=== PATIENT | female | born 1990 | race Caucasian/White ===

== ENCOUNTER 2024-10-21 07:55 | Inpatient (IN) | payer MEDICAID, SELFPAY ==
--- OUTSIDE RECORDS SUMMARY | 2007-06-06 16:04 | XMS_ITS | Encounter Summary ---
Author Organization [facility] Address [address] [address] Phone Care Team Providers Care Personal Service Workers Name Role Phone Unavailable Primary Care Provider Unavailabl e Encounter Details Date Type Department Care Team (Late st Contact Info) Description 06/06/2007 4:04 [place] [address] Gumaro Breaux PA-C [address] [place] [address] Social History Tobacco Use Types Packs/Day Years Used Date Smoking Tobacco: Former Smokeless Tobacco: Never Comments:1./5 ppd Quit smoki ng summer Alcohol Use Standard Drinks/Week Comments Yes 0 (1 standard drink = 0.6 oz pur e alcohol) 1-2 drinks weekly Overall Financial Resource Strain (CARDIA) Answe r Date Recorded How hard is it for you to pa y for the very basics like food, housing, medical care, and heating? Somewhat hard 05/29/2019 PHQ-2 Answer Date Recorded PHQ-2 Total 3 05/29/2019 Hunger Vital Sign Answer Date Recorded Within the past 12 months, y ou worried that your food would run out before you got the money to buy more. Sometimes true Within the past 12 months, t he food you bought just didn't last and you didn't have money to get more. Sometimes true PRAPARE - Transportation Answer Date Re corded In the past 12 months, has l ack of transportation kept you from medical appointments or from getting medications? No 05/07 In the past 12 months, has l ack of transportation kept you from meetings, work, or from getting things needed for daily living? 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 No / Unsure 05/29/2019 4:00 PM CDT documented as of this encounter Plan of Treatment Not on file documented as of this encounter Visit Diagnoses Not on filedocumented in this encounter
--- OUTSIDE RECORDS SUMMARY | 2024-05-15 10:30 | XMS_ITS ---
Author Organization [facility] Address [address] [place] [address] Care Team Providers Care Character Actress Name Role Phone None, No PCP Primary Care Provider Joi Cavanaugh Unavailable [phone] Jeanette Lee Unavailable [phone] Allergies Allergen (clinical drug ingredient) Drug/Non Drug Allergy documented on EMR Reaction Allergy Type Onset Date Status Seasonal Allergies (uncoded) Unknown Allergy Active morphine Morphine Unknown Drug Allergy Active REASON FOR VISIT C/S 04/02, EPDS:, Pap: 2019?, control: Medications Medication SIG (Take, Route, Fr equency, Duration) Notes Start Date End Date Status Ibuprofen Active valACYclovir HCl 500 MG 1 tablet Orally Twice a day; Duration: 3 days 04/17/2024 Active Active Social History Tobacco Use: Social History Observation Description Date Details (start date - stop date) Never Smoker NA - NA Tobacco Control (Standard) Question Answer Notes Tobacco use: Nonsmoker Encounters Encounter Location Date Provider Diagnosis [facility] [address] [place] [phone] 05/15/2024 Jeanette Lee Encounter for routine follow-up Z39.2 and Encounter for screening for other disorder Z13.89 Assessments Encounter Date Diagnosis (ICD Code) Assessment Notes Treatment Notes Treatment Clinical Notes Section Notes 05/15/2024 Encounter for routine follow-up (ICD-10 - Z39.2) Patient was counseled on the importance of pelvic floor exercise in the post period for improved pelvic floor muscle tone and reduction of current or future urinary incontinence issues. Discussed scar massage to reduce scar tissue formation. Reviewed silicone scar sheets Pap Patient may resume normal activities. Discussed contraceptive options, desires Return for annual exam in 1 year and prn 05/15/2024 Encounter for screening for other disorder (ICD-10 - Z13.89) Plan Of Treatment Treatment Notes Assessment Notes Encounter for routine postpa rtum follow-up Patient was counseled on the importance of pelvic floor exercise in the post period for improved pelvic floor muscle tone and reduction of current or future urinary incontinence issues. Discussed scar massage to reduce scar tissue formation. Reviewed silicone scar sheets Pap Patient may resume normal activities. Discussed contraceptive options, desires Return for annual exam in 1 year and prn Next Appt Details Follow Up: 1 Year,prn, Reaso n: Progress Notes * Shena ALONSO NDOB:[birth year] (34 yo F)Acc No.[id number]:05/15/2024 Patient: Shena CEE Provider: Brandan Lee MD :1990 A ge:34 Y S ex:Female Date:05/15/2024 Address:[address] [place], [place] [id number] Pcp:No PCP None Subjective: * Chief Complaints: * 1 . C/S 04/02. 2. EPDS:. 3. Pap: 2019?. 4. control:. * HPI: * General: Pt is here for 6 weeks post visit. She had a repeat c/s on 04/02. was complicated by: 1st baby has skeletal dysplasia, Hx of kidney stones and hydronephrosis, hx of c/s, P reeclampsia with first, Herniated disk, Genital HSV, Hx fatty liver disease at age 24, Pre- BMI 35, Anxiety and hx of PP depression Also having some back pain and superficial left left pain- was happening during the pregnnacy, but has continued. Discussed gabapentin and PT- would like to see if improves She is currently breast and bottle feeding pumped milk Bleeding: She has/has not resumed intercourse. For control she desires: Her EPDS score was: . Leaking of urine with cough/sneeze: Need MMR or Varicella vaccine: no Completing 2hr GTT today: no Last pap smear: 2019- due today. * Medical History: M igraines, ADHD, Anxiety/Depression, Post- depression, Leukocytosis, Kidney Stones, Hydronephrosis. 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 B irth Control: N one. S exual Activity C urrently sexually active, male partner. S exually Tranmitted Disease (STD) H SV-Herpes Simplex Virus. D enies H/O Abnormal Pap Smear. D enies H/O Colposcopy. * OB History: G PAL: G 2P1 C/S x1. P regnancy # 1: 2 020, Primary , Female. P regnancy # 2: 2 025, Repeat . G P G ravida: 2, : 1, : 0, : 0, : 0, : 0, : 0, : 1. * Surgical History: T humb surgery , Tonsillectomy , C-Sectionx2 . * Hospitalization/Major Diagno stic Procedure: D elivery/ , Kidney stones , childbirth . * Family History: Pt Denies Family Medical Hx . * Social History: T obacco Use: T obacco Control (Standard) T obacco use: N onsmoker D rugs/Alcohol: D rugs H ave you used drugs other than those for medical reasons in the past 12 months? N o Caffeine I ntake: 1 -2 cups per day Do you smoke marijuana?: Denies. Do you drink alcohol?: Not while . M iscellaneous: E xercise: yes. * Medications: T aking Ibuprofen , Taking , Taking valACYclovir HCl 500 MG Tablet 1 tablet Orally Twice a day , Medication List reviewed and reconciled with the patient * Allergies: M orphine, Seasonal Allergies. Objective: * Vitals: * Examination: * General Examination: GENERAL APPEARANCE: i n no acute distress, alert, well hydrated, in no distress. BREASTS: D eferred. Patient is lactating. ABDOMEN: s oft, nontender, nondistended, Pfannenstiel incision healing well, no erythema, drainage, or induration. RECTAL: N o Hemorrhoids.. 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 PSYCH: a lert, oriented, judgement and insight good, mood/affect full range, speech clear. Assessment: * Assessment: 1. E ncounter for routine follow-up - Z39.2 (Primary) 2 . E ncounter for screening for other disorder - Z13.89 Plan: * Treatment: * Procedure Codes: 0 503F CARE VISIT, 00477 PT-FOCUSED HLTH RISK ASSMT, Modifiers: 59 , 67554 PT-FOCUSED HLTH RISK ASSMT, Modifiers: 59 * Preventive Medicine: YOUR PREVENTIVE WELLNESS PLAN: B reast Cancer Screening (Mammogram): My last mammogram was done on: U nder 39yrs C ervical Cancer Screening (Pap Smear): My last Pap smear was done on: 0 09/07/2019 NILM/-HPV O steoporosis Screening (Bone Density Measurement): My last bone density was done on: U nder 64yr C olorectal Cancer Screening: Last Done Colonoscopy U nder 44yrs D epression Screening: Screening for depression was last done on: 0 05/15/2024 * Follow Up: 1 Year,prn * Images: Billing Information: * Visit Code: * Procedure Codes: 0503F CARE VISIT. 69247 PT-FOCUSED HLTH RISK ASSMT. Modifiers: 59 14291 PT-FOCUSED HLTH RISK ASSMT. Modifiers: 59 * Electronic signature of Nicki Lee MD on 10/21/2024 at 09:06 AM CDT Sign off status: Pending * Provider: Brandan Lee MD Date: 0 05/15/2024 Generated for Vivian dumont/Vita/Luis Manuel on: 0 10/21/2024 09:06 AM CDT History and Physical Notes * HPI (History of Present Illness) Category Sub-Category Detail Notes Category Not es *General Pt is here for 6 weeks post visit. She had a repeat c/s on 04/02. was complicated by: 1st baby has skeletal dysplasia, Hx of kidney stones and hydronephrosis, hx of c/s, Preeclampsia with first, Herniated disk, Genital HSV, Hx fatty liver disease at age 24, Pre- BMI 35, Anxiety and hx of PP depression Also having some back pain and superficial left left pain- was happening during the pregnnacy, but has continued. Discussed gabapentin and PT- would like to see if improves She is currently breast and bottle feeding pumped milk Bleeding: She has/has not resumed intercourse. For control she desires: Her EPDS score was: . Leaking of urine with cough/sneeze: Need MMR or Varicella vaccine: no Completing 2hr GTT today: no Last pap smear: 2019- due today Examination Category Sub-Category Detail Notes Category Not es *General Examination GENERAL APPEARANCE: in no a cute distress, alert, well hydrated, in no distress ABDOMEN: soft, nontender, non distended, Pfannenstiel incision healing well, no erythema, drainage, or induration BREASTS: Deferred. Patient is lactating RECTAL: No Hemorrhoids. PSYCH: alert, oriented, alec gement and insight good, mood/affect full range, speech clear SUPPLY CHAIN VICE PRESIDENT: External genitals no rmal, labia without lesions or masses, vagina without abnormal discharge, lesions, rectocele, or cystocele Absent lochia, cervix palpates closed, negative CMT, uterus firm, mobile, non tender, normal uterine involution, adnexa without masses or tenderness, ovaries without enlargement, non tender.
--- OUTSIDE RECORDS SUMMARY | 2024-05-21 08:00 | XMS_ITS ---
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 Name Role Phone None, No PCP Primary Care Provider Joi Cavanaugh Unavailable [phone] Glendy Rucker Unavailable [phone] REASON FOR VISIT 6 WK DOD 04/02 Encounters Encounter Location Date Provider Diagnosis [facility] [id number] [place] [phone] 05/21/2024 Glendy Rucker Plan Of Treatment No Information Progress Notes * Shena ALONSO NDOB:[birth year] (34 yo F)Acc No.[id number]:05/21/2024 Patient: Shena CEE Provider: Myrna Rucker CNM :1990 A ge:34 Y S ex:Female Date:05/21/2024 Address:[address] [place], [place] [id number] Pcp:No PCP None Subjective: * Chief Complaints: * 1 . 6 WK DOD 04/02. * Medical History: Objective: * Vitals: Assessment: Plan: * Treatment: * Images: Billing Information: * Visit Code: * Procedure Codes: * Electronic signature of Glendy Rucker CNM on 10/21/2024 at 09:06 AM CDT Sign off status: Pending * Provider: Myrna Rucker CNM Date: 0 05/21/2024 Generated for Printi ng/Fapippag/eTransmitting on: 0 10/21/2024 09:06 AM CDT
--- OUTSIDE RECORDS SUMMARY | 2024-09-08 09:30 | XMS_ITS ---
Author Organization [facility] Address [address] [place] [address] Care Team Providers Care Diagnostic Cardiac Sonographer Name Role Phone None, No PCP Primary Care Provider Joi Cavanaugh Unavailable [phone] Glendy Rucker Unavailable [phone] Allergies Allergen (clinical drug ingredient) Drug/Non Drug Allergy documented on EMR Reaction Allergy Type Onset Date Status Seasonal Allergies (uncoded) Unknown Allergy Active morphine Morphine Unknown Drug Allergy Active REASON FOR VISIT BC Consult, What type of BC interested: getting facial hair ocp, LMP: 08/10/24, Pharmacy: [facility] [place], questions/concerns:, ZAYDA RMA, Possible thrush: white stuff on tongue, mouth wash, hydro mouthrinse. brush tongue. doesn't have a pcp, going on for 2 wks, bumpy and painful and also having a sore throat. feeling like hairs are sticking up on the tongue. Possible needing refill for valtrex Medications Medication SIG (Take, Route, Frequency, Duration) Notes Start Date End Date Status Daija 0.35 MG 1 tablet Orally Once a day; Duration: 90 days 09/08/2024 Active Active Ibuprofen Active Cephalexin 500 MG 1 capsule Orally juliet ry 6 hrs; Duration: 10 days 05/22/2024 Not-Takin g valACYclovir HCl 500 MG 1 tablet Orally Twice a day; Duration: 3 days 04/17/2024 Active Nystatin 833303 UNIT/ML 4 mL Mouth/Throa t Four times a day; Duration: 14 days 09/08/2024 Active Social History Tobacco Use: Social History Observation Description Date Details (start date - stop date) Never Smoker NA - NA Tobacco Control (Standard) Question Answer Notes Tobacco use: Nonsmoker Vital Signs Blood pressure systolic 120 mm Hg 09/09/19 25 Blood pressure diastolic 80 mm Hg 025 Height 65 in 09/08/2024 Weight 218.0 lbs 09/08/2024 BMI 36.27 kg/m2 09/08/2024 Encounters Encounter Location Date Provider Diagnosis [facility] [address] [place] [address] 09/08/2024 Glendy Rucker Counseling for initiation of control method Z30.09 and Thrush, oral B37.0 Assessments Encounter Date Diagnosis (ICD Code) Assessment Notes Treatment Notes Treatment Clinical Notes Section Notes 09/08/2024 Counseling for initiation of control method (ICD-10 - Z30.09) 09/08/2024 Thrush, oral (ICD-10 - B37.0) 09/08/2024 Other Discussed R/B/A for all available control options. No history of thrombus, HTN. Non smoker. At this time she opts for: progesterone only pill given status. Discussed when we would transition to combo pill. Discussed importance of med compliance for effectiveness. Nystsatin sent for oral thrush. Plan Of Treatment Medication Medication Name Sig Start Date Stop Date Notes Daija 0.35 MG 1 tablet Orally Once a day; Duration: 90 days 09/08/2024 Nystatin 661370 UNIT/ML 4 mL Mouth/Throa t Four times a day; Duration: 14 days 09/08/2024 Treatment Notes Assessment Notes Other Discussed R/B/A for all available control options. No history of thrombus, HTN. Non smoker. At this time she opts for: progesterone only pill given status. Discussed when we would transition to combo pill. Discussed importance of med compliance for effectiveness. Nystsatin sent for oral thrush. Next Appt Details Follow Up: 1 Year, Reason: Progress Notes * Shena ALONSO NDOB:[birth year] (34 yo F)Acc No.[id number]:09/08/2024 Patient: Shena CEE Safia Provider: Myrna Rucker CNM :1990 A ge:34 Y S ex:Female Date:09/08/2024 Address:[address] [place], [place] [address] [id number] Pcp:No PCP None Subjective: * Chief Complaints: * 1 . BC Consult. 2. What type of BC interested: getting facial hair ocp. 3. LMP: 08/10/24. 4. Pharmacy: [facility] [place]. 5. Questions/concerns:. 6. JL RMA. 7. Possible thrush: white stuff on tongue, mouth wash, hydro mouth rinse. brush tongue. doesn't have a pcp. 8. going on for 2 wks, bumpy and painful and also having a sore throat. feeling like hairs are sticking up on the tongue. Possible needing refill for valtrex. * HPI: * General: Shena is here today to discussion options for contraception. Most interested in a control pill. Past history of contraception: OCP Denies history of thrombus, HTN, liver disease, stroke, lupus. Non smoker. Medical history significant for: status Has painful breasts, heavy blood clots S/p repeat 04/02/24. exclusively. No supplementation. Oldest will be starting preschool. She thinks she may have thrush. * Medical History: M igraines, ADHD, Anxiety/Depression, Post- depression, Leukocytosis, Kidney Stones, Hydronephrosis. 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 * Medications: T aking Ibuprofen , Taking , Taking valACYclovir HCl 500 MG Tablet 1 tablet Orally Twice a day , Not-Taking Cephalexin 500 MG Capsule 1 capsule Orally every 6 hrs , Medication List reviewed and reconciled with the patient * Allergies: M orphine, Seasonal Allergies. Objective: * Vitals: H t: 65 in, Wt:218.0lbs, BP:120/80mm Hg, BMI:36.27Index. * Examination: * General Examination: GENERAL APPEARANCE: i n no acute distress, well developed, well nourished. O RAL CAVITY: m ucosa moist, bumps on tongue, white patches. T HROAT:?clear. P SYCH: a lert, oriented, judgement and insight good, mood/affect full range, speech clear. Assessment: * Assessment: 1. C ounseling for initiation of control method - Z30.09 (Primary) 2 .?Thrush, oral - B37.0 Plan: * Treatment: 2. O thers Notes: Discussed R/B/A for all available control options. No history of thrombus, HTN. Non smoker. At this time she opts for: progesterone only pill given status. Discussed when we would transition to combo pill. Discussed importance of med compliance for effectiveness. Nystsatin sent for oral thrush. * Preventive Medicine: YOUR PREVENTIVE WELLNESS PLAN: B reast Cancer Screening (Mammogram): M y last mammogram was done on: U nder 39yrs. C ervical Cancer Screening (Pap Smear): M y last Pap smear was done on: 0 09/07/2019 NILM/-HPV. O steoporosis Screening (Bone Density Measurement): M y last bone density was done on: U nder 64yr. C olorectal Cancer Screening: L ast Done Colonoscopy U nder 44yrs. D epression Screening: S creening for depression was last done on: 0 05/15/2024. * Follow Up: 1 Year * Images: Billing Information: * Visit Code: 83925 Office Visit, Est Pt., Level 3. * Procedure Codes: * Sign off status: Completed true * Provider: Myrna Rucker CNM Date: 0 09/08/2024 Generated for Vivian dumont/Vita/Luis Manuel on: 0 10/21/2024 09:07 AM CDT History and Physical Notes * HPI (History of Present Illness) Category Sub-Category Detail Notes Category Not es *General Shena is here today to discussion options for contraception. Most interested in a control pill. Past history of contraception: OCP Denies history of thrombus, HTN, liver disease, stroke, lupus. Non smoker. Medical history significant for: status Has painful breasts, heavy blood clots S/p repeat 04/02/24. exclusively. No supplementation. Oldest will be starting preschool. She thinks she may have thrush. Examination Category Sub-Category Detail Notes Category Not es *General Examination GENERAL APPEARANCE: in no a cute distress, well developed, well nourished THROAT: clear PSYCH: alert, oriented, alec gement and insight good, mood/affect full range, speech clear ORAL CAVITY: mucosa moist, bumps on tongue, white patches
[2024-10-21] VITALS (21 sets, daily range): BP systolic 109–136; BP diastolic 66–110; PULSE 94–145; RESP 14–20; TEMP 34.8–37; O2SAT 93–100; BMI 37.2
--- NOTE | 2024-10-21 08:47 | CRLHL7_ITS ---
For Patients: As a result of the Century Cures Act, medical imaging exams and procedure reports are released immediately into your electronic medical record. You may view this report before your referring provider. If you have questions, please contact your health care provider. Indication: Pelvic pain. Persistent bleeding. Technique: Transabdominal and transvaginal examination of the pelvis was performed. The patient terminated the study prematurely. Grayscale imaging was provided as well as spectral Doppler. Comparison: None Findings: As described below Impression: 1. The uterus is heterogeneous measuring 9.0 x 4.8 x 6.1 centimeters. 2. The endometrium measures approximately 1.1 centimeters. There is some extension of endometrial tissue into a scar. No unequivocal findings of retained products of conception though the study is limited 3. Apparent solid right adnexal mass incompletely evaluated on this study. 4. Free fluid in the cul de sac above that generally seen physiologically. 5. CT with intravenous contrast advised as this study is limited, abnormal, and shows nonspecific abnormalities Dictated by Iggy Lovell MD @ 10/21/2024 9:46:19 AM (Electronically Signed)
--- NOTE | 2024-10-21 08:55 | ED.ABDPAIN ---
HPI - Abdominal Pain General Date Seen: 10/21/24 Chief Complaint: Abdominal Pain Stated Complaint: Abdominal pain Time Seen by Provider: 10/21/24 08:11 Source: patient Mode of arrival: ambulatory Limitations: no limitations History of Present Illness HPI narrative: Patient is a 34-year-old female presenting to the emergency department for lower abdominal/pelvic pain. She states she woke up early this morning with the pain states it feels like a cramping sensation. Describes the pain as severe and it has prevented her from going back to bed. She states she has been feeling warm but is unsure if that is from feeling feverish or just due to the pain. Has not had any objective fevers. States she had somewhat similar pain several years ago but was not this severe and she was told it was IBS. States she feels like it is something more this time due to the severe increase in the pain. She states it makes her feel like she constantly has to go to the bathroom and has had multiple small bowel movements since then. Has also been having her. Continuously for 1 month which is abnormal for her. Did have a about 6-7 months ago at that time she states she was told they scraped off some of the endometrial tissue from ovary and the uterus. Has not had any vaginal discharge. States overall she healed well from the surgery. Denies chest pain, shortness of breath, lightheadedness, dizziness, weakness, numbness, vision changes, headache. Has been having some nausea but denies any vomiting. Related Data Home Medications ?Medication ?Instructions ?Recorded ?Confirmed No Known Home Medications 10/21/24 10/21/24 Allergies Allergy/AdvReac Type Severity Reaction Status Date / Time No Known Drug Allergies Allergy Verified 10/21/24 08:08 Review of Systems Status of ROS Reports: 10 or more systems reviewed and unremarkable except as noted in History and below [facility] PFS Social History Non-prescribed substance use: denies use Exam Narrative: Exam Narrative: Const: Well-nourished, Well-developed, in moderate distress Eyes: PERRL, no conjunctival injection, and symmetrical lids HENT: Atraumatic external nose and ears. Moist mucous membranes. Neck: Symmetric, trachea midline, No thyromegaly. CVS: RRR, No murmurs or gallops. Peripheral pulses 2+ and equal in all extremities RESP: Unlabored respiratory effort. Clear to auscultation bilaterally. GI: Lower abdominal tenderness, Nondistended, No rebound or guarding. Pelvic: Bilateral pelvic tenderness. MSK:Extremities w/o deformity, Normal Active ROM Skin: Warm, Dry. No rashes or lesions. Neuro: Normal Muscle tone, No focal neurological deficits. Psych: Awake, Alert, & Oriented x3. Appropriate mood and affect. Const: Vital Signs, click to edit/add: Vital Signs - 24 hr 10/21/24 08:00 10/21/24 09:30 Temperature 97.4 F L Pulse Rate [Right Pulse Oximeter] 145 H 115 H Respiratory Rate 18 18 Blood Pressure [Ri ght Upper Arm] 128/92 H Pulse Oximetry 97 Oxygen Delivery Me thod Room Air Course Vital Signs Vital signs: Initial Vital Signs Temperature 97.4 F L 10/21/24 08:00 Temperature Source Temporal Artery Scan 10/21/24 08:00 Pulse Rate 145 H 10/21/24 08:00 Pulse Rhythm Regular 10/21/24 08:00 Pulse Strength 3+ Normal 10/21/24 08:00 Respiratory Rate 18 10/21/24 08:00 Blood Pressure 128/92 H 10/21/24 08:00 Blood Pressure Mean 104 10/21/24 08:00 Blood Pressure Position Sitting 10/21/24 08:00 Pulse Oximetry 97 10/21/24 08:00 Oxygen Delivery Method Room Air 10/21/24 08:00 Vital Signs Temperature 97.4 F L 10/21/24 08:00 Pulse Rate 145 H 10/21/24 08:00 Respiratory Rate 18 10/21/24 08:00 Blood Pressure 128/92 H 10/21/24 08:00 Pulse Oximetry 97 10/21/24 08:00 Oxygen Delivery Method Room Air 10/21/24 08:00 Temperature 97.4 F L 10/21/24 08:00 Pulse Rate 115 H 10/21/24 09:30 Respiratory Rate 18 10/21/24 09:30 Blood Pressure 128/92 H 10/21/24 08:00 Pulse Oximetry 97 10/21/24 08:00 Oxygen Delivery Method Room Air 10/21/24 08:00 Medications Administered Medications: Discontinued Medications Generic Name Dose Route Start Last Admin Trade Name Freq PRN Reason Stop Dose Admin Hydromorphone HCl 1 mg 10/21/24 10:18 10/21/24 10:37 Hydromorphone 0.5 Mg/0.5 Ml Inj IVP 10/21/24 10:19 1 mg ONCE ONE Administration Morphine Sulfate 4 mg 10/21/24 08:47 10/21/24 09:09 Morphine 4 Mg/Ml Inj IVP 10/21/24 08:48 4 mg ONCE ONE Administration Morphine Sulfate 4 mg 10/21/24 09:32 10/21/24 09:35 Morphine 4 Mg/Ml Inj IVP 10/21/24 09:33 4 mg ONCE ONE Administration Ondansetron HCl 4 mg 10/21/24 08:47 10/21/24 09:09 Ondansetron 2 Mg/Ml Inj IVP 10/21/24 08:48 4 mg ONCE ONE Administration Ondansetron HCl 4 mg 10/21/24 10:43 10/21/24 11:14 Ondansetron 2 Mg/Ml Inj IVP 10/21/24 10:44 4 mg ONCE ONE Administration MDM - Abdominal Pain MDM Narrative Medical decision making narrative: Patient is a 34-year-old female presenting to the emergency department for lower abdominal/pelvic pain. Differential at this time includes ovarian torsion, endometriosis, retained products of conception, endometriosis, diverticulitis, UTI, appendicitis. She has had multiple small bowel movements in SBO seems less likely. Due to location of pain pancreatitis and gallbladder/liver disease seem unlikely. Will give her morphine for pain and Zofran for nausea. Pelvic ultrasound will be ordered 1st as considering the vaginal bleeding and previous I do believe a ultrasound is more emergent. If this is negative will go on to doing a CT scan. Also ordered urinalysis, CBC, CMP, lactate. Patient lab work returned showing that she has a white count of 15.29. She does states she has a chronic leukocytosis. Her lactate is within normal limits. CMP shows no concerning abnormalities. She is very mildly elevated AST and ALT. Morphine is given for pain and she went for ultrasound. Is difficult to get an adequate ultrasound due to patient's pain. Results returned showing a adnexal mass of unknown size and greater than expected pelvic fluid. I spoke to the patient and she states she has not had sex for several months. test was ordered and came back positive. At this time I am concerned for an ectopic . I spoke to the on-call Ob who recommends trying repeat the ultrasound for better evaluation in wait for the hCG quantitative to come back. Patient is given more morphine and some dilaudid After the medications another ultrasound was done. This was also difficult to do because of the patient's pain limiting exam. Based on but was able to be viewed in the patient having an hCG quantitative of 3120 is determined to be an ectopic . I spoke to Dr. Candelaria again who came immediately to evaluate the patient for surgery. Patient last ate around 03:00 when she had a pop tart. Her tachycardia has improved from 145 to 115. Lab Data Labs: Lab Results 10/21/24 10/21/24 10/21/24 Range/Units 09:05 10:09 10:20 WBC 15.29 H (4.50-11.00) K/uL RBC 4.51 (4.00-5.20) m/uL Hgb 12.6 (12.0-16.0) gm/dL Hct 38.2 (33.0-51.0) % MCV 85 (80-100) fL MCH 28 (26-34) pg MCHC 33 (32-36) gm/dL RDW Coeff of Meri 13.3 (11.5-15.5) % Plt Count 317 (140-440) K/uL Neut % (Auto) 77.3 H (42.0-72.0) % Lymph % (Auto) 18.1 L (20-44) % [place] % (Auto) 3.9 (0.0-11.0) % Eos % (Auto) 0.3 (0.0-7.0) % Baso % (Auto) 0.1 (0.0-3.0) % Neut # (Auto) 11.80 H (1.7-7.0) K/uL Lymph # (Auto) 2.80 (0.90-2.90) K/uL [place] # (Auto) 0.60 (0.00-0.90) K/UL Eos # (Auto) 0.00 (0.00-0.50) K/uL Baso # (Auto) 0.00 (0.00-0.30) K/uL Abs Immat Gran (auto) 0.00 (0.00-0.30) K/uL Imm/Tot Granulo (auto) 0.3 % Sodium 135 (135-149) mmol/L Potassium 4.4 (3.6-5.1) mmol/L Chloride 109 (96-114) mmol/L Carbon Dioxide 19 L (20-32) mmol/L Anion Gap 7 (7-15) mEq/L BUN 19 (5-24) mg/dL Creatinine 0.6 (0.5-1.5) mg/dL Estimated Creat Clear 113.01 Estimated GFR 120 ml/min Glucose 125 H (60-115) mg/dL Lactate 1.5 (0.5-1.9) mmol/L Calcium 8.9 (8.4-10.6) mg/dL Total Bilirubin 0.4 (0.1-1.5) mg/dL AST 42 H (12-35) U/L ALT 45 H (4-35) U/L Alkaline Phosphatase 75 (40-150) U/L Total Protein 6.9 (6.0-8.3) g/dL Albumin 4.0 (3.3-5.0) g/dL HCG, Qual Positive (Negative) HCG, Quant 3120.10 mIU/mL Lab Acknowledgement Test Added Blood Type A Positive Antibody Screen NEGATIVE Imaging Data Initial transvaginal ultrasound: Attestation: I have reviewed the pertinent imaging results. Radiologist's impression: 1. The uterus is heterogeneous measuring 9.0 x 4.8 x 6.1 centimeters. 2. The endometrium measures approximately 1.1 centimeters. There is some extension of endometrial tissue into a scar. No unequivocal findings of retained products of conception though the study is limited 3. Apparent solid right adnexal mass incompletely evaluated on this study. 4. Free fluid in the cul de sac above that generally seen physiologically. 5. CT with intravenous contrast advised as this study is limited, abnormal, and shows nonspecific abnormalities Dictated by Iggy Lovell MD @ 10/21/2024 9:46:19 AM Critical Care Time Critical Care Time Critical Care Time: Yes Attestation: The patient required my highest level preparedness to intervene emergently and I personally spent this critical care time directly and personally managing the patient. This critical care time included: Obtaining a history; Examining the patient; Pulse oximetry; Ordering and reviewing of studies; Arranging urgent treatment with development of a management plan; Evaluation of patients response to treatment; Frequent reassessment discussions with other providers. This critical care time was performed to assess and manage the high probability of imminent life-threatening deterioration that could result in multiorgan failure. It was exclusive of separate billable procedures and treating other patients and teaching time. Total Critical Care Time in Minutes: 35 Discharge Plan Discharge Clinical Impression: Ectopic of right ovary Patient Disposition: XFER to OR Condition: Guarded Follow Up/Referrals: Provider,Not a Local [Primary Care Provider, Family Practice]
--- OUTSIDE RECORDS SUMMARY | 2024-10-21 09:07 | XMS_ITS | Patient Health Record ---
Author Organization [facility] Address [address] [place] [address] Care Team Providers Care Dietist Name Role Phone None, No PCP Primary Care Provider UnavailJoi Moise Unavailable [phone] Daija Lima Unavailable [phone] Isabela Guerrero Unavailable [phone] Spring Avitia Unavailable [phone] Kaylie Chairez Unavailable [phone] Sun Peace Unavailable [phone] Glendy Rucker Unavailable [phone] Mary Salazar Unavailable Mirr, Jeanette Unavailable [phone] Heritage, Jaylen Unavailable [phone] Allergies Allergen (clinical drug ingredient) Drug/Non Drug Allergy documented on EMR Reaction Allergy Type Onset Date Status Seasonal Allergies (uncoded) Unknown Allergy Active morphine Morphine Unknown Drug Allergy Active Results Component Value Reference Range Notes TSH Reviewed date:05/23/2024 08:38:24 AM Interpretation: Performing Lab:[facility], [facility] [address], HydrostorNumhZU[address] Delbert Vazquez Notes/Report: TSH 1.06 Reference Range > or = 20 Years 0.40-4.50 Ranges First trimester 0.26-2.66 Second trimester 0.55-2.73 Third trimester 0.43-2.91 T4, FREE Reviewed date:05/23/2024 08:38:15 AM Interpretation: Performing Lab:[facility], [facility] [address], [place]storDksoHL[address] Delbert Vazquez Notes/Report: T4, FREE 1.0 0.8-1.8 ng/dL Urinalysis, Routine (IH) Reviewed date:01/16/2024 02:46:56 PM Interpretation: Performing Lab: Notes/Report: Customer Advisor: 01 Lab UA Machine ([id number]), [facility] RPR (DX) W/REFL TITER AND CO NFIRMATORY TESTING Reviewed date:01/22/2024 08:08:01 AM Interpretation: Performing Lab:DASHAWN, [email or web address], AmlogicAidbUS[address] Delbert Vazquez Notes/Report: 0; 0; 0 RPR (DX) W/REFL TITER AND CONFIRMATORY TESTING NON-REACTIVE NON-REACTIVE is suspected, submit a new sample in 2-4 weeks. No laboratory evidence of syphilis. If recent exposure CBC (INCLUDES DIFF/PLT) Reviewed date:01/17/2024 02:22:24 PM Interpretation: Performing Lab:[email or web address], AmlogicSaqzKS[address] Delbert Vazquez Notes/Report: 0; 0; 0 WHITE BLOOD CELL COUNT 15.7 3.8-10.8 Thousand/ uL RED BLOOD CELL COUNT 4.59 3.80-5.10 Million/uL HEMOGLOBIN 13.8 11.7-15.5 g/dL HEMATOCRIT 41.7 35.0-45.0 % MCV 90.8 80.0-100.0 fL MCH 30.1 27.0-33.0 pg MCHC 33.1 32.0-36.0 g/dL For adults, a slight decrease in the calculated MCHC value (in the range of 30 to 32 g/dL) is most likely not clinically significant; however, it should be interpreted with caution in correlation with other red cell parameters and the patient's clinical condition. RDW 13.0 11.0-15.0 % PLATELET COUNT 282 140-400 Thousand/uL MPV 9.6 7.5-12.5 fL ABSOLUTE NEUTROPHILS 36892 1790-9641 cells/uL ABSOLUTE LYMPHOCYTES 3485 850-3900 cells/uL ABSOLUTE MONOCYTES 597 200-950 cells/uL ABSOLUTE EOSINOPHILS 79 15-500 cells/uL ABSOLUTE BASOPHILS 47 0-200 cells/uL NEUTROPHILS 73.2 LYMPHOCYTES 22.2 MONOCYTES 3.8 EOSINOPHILS 0.5 BASOPHILS 0.3 GLUCOSE, GESTATIONAL SCREEN (50G)-135 CUTOFF Reviewed date:01/17/2024 02:22:24 PM Interpretation: Performing Lab:D[facility]HAWN [email or web address] [address], [facility] CenterUecpFP[address] Delbert Vazquez Notes/Report: 0; 0; 0 GLUCOSE, GESTATIONAL SCREEN (50G)-135 CUTOFF 120 <135 mg/dL MVP (Multiplex Vaginitis) (I H) Reviewed date:03/27/2024 08:44:54 AM Interpretation: Performing Lab: Notes/Report: Customer Advisor: tati Lot: [id number], Expiry: 2024-12 CT/NG Cepehid ([id number]), [place] - Lab Chlamydia & Gonorrhea Reviewed date:03/31/2024 11:24:25 AM Interpretation: Performing Lab:Ana FIERRO [facility], QqxrvfvinmNV[address] Delbert Vazquez Notes/Report: 0 CHLAMYDIA TRACHOMATIS RNA, TMA, UROGENITAL NOT DETECTED NOT DETECTED NEISSERIA GONORRHOEAE RNA, TMA, UROGENITAL NOT DETECTED NOT DETECTED COMMENT The analytical performance characteristics of this assay, when used to test SurePath(TM) specimens have been determined by [email or web address]. The modifications have not been cleared or approved by the FDA. This assay has been validated pursuant to the CLIA regulations and is used for clinical purposes. For additional information, please refer to https://education.[employer]/faq/HXR072 (This link is being provided for information/ educational purposes only.) STREPTOCOCCUS, GROUP B CULTU RE Reviewed date:03/18/2024 03:22:30 PM Interpretation:Negative Performing Lab:DASHAWN [email or web address] [address], [place] QilfJM[address] Delbert Vazquez Notes/Report: 0 STREPTOCOCCUS, GROUP B CULTURE SEE NOTE STREPTOCOCCUS, GROUP B CULTURE Micro Number: [id number] Test Status: Final Specimen Source: Vaginal/anorectal Specimen Quality: Adequate Result: No group B Streptococcus isolated Note per CDC guidelines optimal recovery is achieved by swabbing both the lower vagina and rectum (through the anal sphincter). Reason For Referral Reason MFM Diagnosis 1 Encounter for superv ision of other normal in second trimester (Z34.82) [facility]erral Organization [facility] Referring Provider First Name Sun Referring Provider Last Name Nata Referring Provider Speciality Certified Nurse Etl Developer Referred Provider Specialty -Per inatal Medicine Clinical Notes Colton Patel 02:02:45 PM > Referral sent to [facility], Colton Patel 11/14/2023 03:38:57 PM > Pt seen at [facility] 10.8.24. reports and office visit note in pt docs. Pt is scheduled for f/u [facility] visit 12/13/23, Colton Patel 12/14/2023 11:12:07 AM > Report scanned into pt chart CW CTC Referral Priority Routine Referral Appointment Date 12/13/2023 Medications Medication SIG (Take, Route, Frequency, Duration) Notes Start Date End Date Status Daija 0.35 MG 1 tablet Orally Once a day; Duration: 90 days 09/08/2024 Active Nystatin 281660 UNIT/ML 4 mL Mouth/Throa t Four times a day; Duration: 14 days 09/08/2024 Active Active Ibuprofen Active Cephalexin 500 MG 1 capsule Orally juliet ry 6 hrs; Duration: 10 days 05/22/2024 Not-Takin g valACYclovir HCl 500 MG 1 tablet Orally Twice a day; Duration: 3 days 04/17/2024 Active Immunizations Vaccine Route Administration Date Status Comme nts TDAP VACCINE >7 IM IM Intramuscular 01/15/2024 Administere d Social History Tobacco Use: Social History Observation Description Date Details (start date - stop date) Never Smoker NA - NA Tobacco Control (Standard) Question Answer Notes Tobacco use: Nonsmoker AUDIT-C (Standard) Question Answer Notes Did you have a drink contain ing alcohol in the past year? Yes How often did you have six o r more drinks on one occasion in the past year? Less than monthly (1 point) How many drinks did you have on a typical day when you were drinking in the past year? 3 or 4 drinks (1 point) How often did you have a dri nk containing alcohol in the past year? Monthly or less (1 point) Points 3 Interpretation Positive Problems Problem Type SNOMED Code ICD Code Onset Dates Problem Status W/U Status Risk Notes Problem Neck pain (81675000) Neck pain (M54.2) Active confirmed Problem Maternal obesity complicating , childbirth and the puerperium, antepartum (558766070790) Obesity in (O99.210) Active confirmed Vital Signs Blood pressure diastolic 80 mm Hg 09/08/2024 Height 65 in 09/08/2024 Blood pressure systolic 120 mm Hg 09/08/2024 Weight 218.0 lbs 09/08/2024 BMI 36.27 kg/m2 09/08/2024 Encounters Encounter Location Date Provider Diagnosis [address] [id number] 01/31/2024 Jeanette Lee Supervision of other high risk pregnancies, third trimester O09.893 ; Fundal height high for dates Z34.90 and 30 weeks gestation of Z3A.[address] [id number] 05/22/2024 Mary Holly Encounter for routine follow-up Z39.2 [facility] [address] [place] [address] 03/14/2024 Daija Lima screening for streptococcus B Z36.[address] [id number] 01/31/2024 Jeanette Lee Neuralgia M79.2 ; Encounter for supervision of other normal , third trimester Z34.83 ; History of herpes genitalis Z86.19 ; History of section Z98.891 ; with history of section, antepartum O34.219 and Hx of preeclampsia, prior , currently O09.[address] [id number] 01/15/2024 Spring Avitia Encounter for supervision of other normal , third trimester Z34.83 [facility] [address] [place] [address] 11/29/2023 Sun Peace Encounter for supervision of other normal , second trimester Z34.82 [facility] [address] [place] [address] 11/02/2023 Sun Peace Encounter for supervision of normal first , second trimester Z34.02 [facility] [address] [place] [address] 03/26/2024 Jaylen Hesterlashanda Hx of preeclampsia, prior , currently O09.299 ; Supervision of other high risk pregnancies, third trimester O09.893 ; with history of section, antepartum O34.219 ; Obesity in O99.210 ; 38 weeks gestation of Z3A.38 ; Other mental disorders complicating , third trimester O99.343 ; Vaginitis N76.0 ; Acute vaginitis N76.0 ; Encounter for screening examination for sexually transmitted disease Z11.3 ; Screen for STD (sexually transmitted disease) Z11.3 and Encounter for screening examination for chlamydial infection Z11.[address] [id number] 03/18/2024 Kaylie Chairez Obesity in O99.210 and Supervision of high risk , unspecified, third trimester O09.[address] [id number] 03/13/2024 Daija Lima Supervision of high risk , unspecified, third trimester O09.93 ; History of herpes genitalis Z86.19 ; with history of section, antepartum O34.219 ; Hx of preeclampsia, prior , currently O09.299 and Obesity in O99.[address] [id number] 02/28/2024 Jeanette Lee Supervision of high risk , unspecified, third trimester O09.93 ; History of herpes genitalis Z86.19 ; with history of section, antepartum O34.219 ; Hx of preeclampsia, prior , currently O09.299 and Obesity in O99.210 [facility] [address] [place] [address] 05/22/2024 Mary Holly exam Z39.2 and Mastitis N61.[address] [address] 09/08/2024 Glendy Rucker Counseling for initiation of control method Z30.09 and Thrush, oral B37.[address] [place] [address] [id number] 03/18/2024 Daija Lima High risk , antepartum O09.90 and 37 weeks gestation of Z3A.[address] [id number] 03/26/2024 Jaylen Pena [address] [id number] 03/25/2024 Isabela Guerrero Segmental and somati c dysfunction of cervical region M99.01 ; Neck pain M54.2 ; Thoracic region somatic dysfunction M99.02 ; Pain in thoracic spine M54.6 ; Segmental and somatic dysfunction of lumbar region M99.03 ; Lumbar spine pain M54.50 and Myofascial pain M79.[address] [id number] 02/28/2024 Jeanette Lee Supervision of other high risk pregnancies, third trimester O09.893 and 34 weeks gestation of Z3A.[address] [id number] 03/26/2024 Kaylie Chairez Encounter for supervision of high risk in third trimester, antepartum O09.93 and 38 weeks gestation of Z3A.38 [facility] [address] [facility] [place] [address] 01/15/2024 Spring Avitia Encounter for supervision of normal in multigravida in third trimester Z34.[address] [id number] 03/18/2024 Isabela Guerrero Segmental and somati c dysfunction of cervical region M99.01 ; Neck pain M54.2 ; Thoracic region somatic dysfunction M99.02 ; Pain in thoracic spine M54.6 ; Segmental and somatic dysfunction of lumbar region M99.03 ; Lumbar spine pain M54.50 and Myofascial pain M79.18 [facility] [address] [place] [address] 02/13/2024 Glendy Rucker History of herpes genitalis Z86.19 ; Supervision of other high risk pregnancies, third trimester O09.893 ; with history of section, antepartum O34.219 ; Hx of preeclampsia, prior , currently O09.299 and 32 weeks gestation of Z3A.32 [facility] [address] [facility] [address] [place] [id number] 04/17/2024 Jeanette Lee Status post delivery Z98.891 ; History of herpes genitalis Z86.19 and Excessive flow of breast milk N64.3 [facility] [address] [place] [address] 04/02/2024 Jeanette Lee Maternal care for lo w transverse scar from previous delivery O34.211 ; 39 weeks gestation of Z3A.39 and Single live Z37.0 [facility] [address] [place] [address] 03/10/2024 Isabela Guerrero [facility] [address] [place] [address] 03/04/2024 Joi Benavides [facility] [address] [place] [address] [place] [id number] 02/29/2024 Jeanette Lee [facility] [address] [place] [address] [place] [id number] 01/14/2024 Spring Avitia [facility] [address] [address] [address] 12/13/2023 Sun Peace [facility] [address] [place] [address] 11/29/2023 Sun Peace [facility] [address] [place] [address] 11/12/2023 Sun Peace [facility] [address] [place] [address] [place] [id number] 11/02/2023 Sun Peace [facility] [address] [place] [address] 10/12/2024 Glendy Rucker [facility] [address] [place] [address] 05/22/2024 Mary Holly [facility] [address] [place] [id number] 04/30/2024 Sun Peace [facility] [address] [place] [address] 04/21/2024 Sun Peace [facility] [address] [facility] [address] [place] [id number] 03/27/2024 Jaylen lashanda [facility] [address] [place] [address] 03/27/2024 Sun Peace [facility] [address] [facility] [address] [place] [id number] 03/26/2024 Jaylen [facility] [address] [place] [address] 03/17/2024 Sun Peace Assessments Encounter Date Diagnosis (ICD Code) Assessment Notes Treatment Notes Treatment Clinical Notes Section Notes 11/02/2023 Encounter for supervision of normal first , second trimester (ICD-10 - Z34.02) 11/29/2023 Encounter for supervision of other normal , second trimester (ICD-10 - Z34.82) 01/15/2024 Encounter for supervision of normal in multigravida in third trimester (ICD-10 - Z34.83) 01/15/2024 Encounter for supervision of other normal , third trimester (ICD-10 - Z34.83) 01/31/2024 Supervision of other high risk pregnancies, third trimester (ICD-10 - O09.893) 01/31/2024 Fundal height high for dates (ICD-10 - Z34.90) 01/31/2024 Encounter for supervision of other normal , third trimester (ICD-10 - Z34.83) 01/31/2024 Neuralgia (ICD-10 - M79.2) 02/13/2024 Supervision of other high risk pregnancies, third trimester (ICD-10 - O09.893) 02/28/2024 Supervision of other high risk pregnancies, third trimester (ICD-10 - O09.893) 02/28/2024 34 weeks gestation of (ICD-10 - Z3A.34) 02/28/2024 Supervision of high risk , unspecified, third trimester (ICD-10 - O09.93) 02/13/2024 History of herpes genitalis (ICD-10 - Z86.19) 02/28/2024 History of herpes genitalis (ICD-10 - Z86.19) 03/13/2024 Supervision of high risk , unspecified, third trimester (ICD-10 - O09.93) 03/13/2024 History of herpes genitalis (ICD-10 - Z86.19) 03/14/2024 screening for streptococcus B (ICD-10 - Z36.85) 03/18/2024 37 weeks gestation of (ICD-10 - Z3A.37) 03/18/2024 High risk , antepartum (ICD-10 - O09.90) 03/18/2024 Supervision of high risk , unspecified, third trimester (ICD-10 - O09.93) 03/18/2024 Obesity in (ICD-10 - O99.210) 03/18/2024 Segmental and somatic dysfunction of cervical region (ICD-10 - M99.01) DIAGNOSIS: Upon consideration of the information available I have diagnosed Shena with the above diagnoses. The patient is currently in acute phase. Short Term Goals- decrease segmental dysfunction, decrease swelling and inflammation, decrease pain, relief care, relief of symptoms and pain management - Short Term Goals: slight improvement by next exam Mcc Goals- decrease segmental dysfunction, decrease swelling and inflammation, increase active and passive range of motion, strengthening, decrease muscle spasms, decrease pain, relief care, relief of symptoms, pain management, maximum medical improvement, increase proprioception, and decrease nociception senior care goals: significantly improved by discharge The patient's prognosis of current condition is Fair. 03/18/2024 Neck pain (ICD-10 - M54.2) DIAGNOSIS: Upon consideration of the information available I have diagnosed Shena with the above diagnoses. The patient is currently in acute phase. 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 03/25/2024 Segmental and somatic dysfunction of cervical region (ICD-10 - M99.01) DIAGNOSIS: Upon consideration of the information available I have diagnosed Shena with the above diagnoses. The patient is currently in acute phase. 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 03/26/2024 38 weeks gestation of (ICD-10 - Z3A.38) 03/26/2024 Encounter for supervision of high risk in third trimester, antepartum (ICD-10 - O09.93) 03/26/2024 Supervision of other high risk pregnancies, third trimester (ICD-10 - O09.893) 03/26/2024 Hx of preeclampsia, prior , currently (ICD-10 - O09.299) 04/02/2024 Maternal care for low transverse scar from previous delivery (ICD-10 - O34.211) 04/17/2024 History of herpes genitalis (ICD-10 - Z86.19) rx for valtrex sent for possible recurrent outbreak 04/17/2024 Status post delivery (ICD-10 - Z98.891) Doing well Pain well controlled Incision healing well without concern Lochia decreasing Lateral femoral cutaneous nerve irritation- planning to monitor at this time, reviewed option for PT or gabapentin if needed in future RTC in 4 weeks for full visit 05/22/2024 exam (ICD-10 - Z39.2) 05/22/2024 Mastitis (ICD-10 - N61.0) 05/22/2024 Encounter for routine follow-up (ICD-10 - Z39.2) 09/08/2024 Counseling for initiation of control method (ICD-10 - Z30.09) 09/08/2024 Thrush, oral (ICD-10 - B37.0) 04/02/2024 39 weeks gestation of (ICD-10 - Z3A.39) 04/02/2024 Single live (ICD-10 - Z37.0) 04/17/2024 Excessive flow of breast milk (ICD-10 - N64.3) Having oversupply and fast letdown Producing 100+ mL/day Discussed block feeding, cool compresses/cabba ge leaves for engorgement If needs to pump/empty for comfort- limit amount of time Recommend collecting milk with passive collection instead of stimulating more supply with Haakaa 03/26/2024 with history of section, antepartum (ICD-10 - O34.219) 03/25/2024 Neck pain (ICD-10 - M54.2) DIAGNOSIS: Upon consideration of the information available I have diagnosed Shena with the above diagnoses. The patient is currently in acute phase. 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 03/18/2024 Thoracic region somatic dysfunction (ICD-10 - M99.02) DIAGNOSIS: Upon consideration of the information available I have diagnosed Shena with the above diagnoses. The patient is currently in acute phase. 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 03/13/2024 with history of section, antepartum (ICD-10 - O34.219) 02/28/2024 with history of section, antepartum (ICD-10 - O34.219) 02/13/2024 with history of section, antepartum (ICD-10 - O34.219) 01/31/2024 History of herpes genitalis (ICD-10 - Z86.19) 01/31/2024 30 weeks gestation of (ICD-10 - Z3A.30) 01/31/2024 History of section (ICD-10 - Z98.891) 02/13/2024 Hx of preeclampsia, prior , currently (ICD-10 - O09.299) 02/28/2024 Hx of preeclampsia, prior , currently (ICD-10 - O09.299) 03/13/2024 Hx of preeclampsia, prior , currently (ICD-10 - O09.299) 03/18/2024 Pain in thoracic spine (ICD-10 - M54.6) DIAGNOSIS: Upon consideration of the information available I have diagnosed Shena with the above diagnoses. The patient is currently in acute phase. 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 03/25/2024 Thoracic region somatic dysfunction (ICD-10 - M99.02) DIAGNOSIS: Upon consideration of the information available I have diagnosed Shena with the above diagnoses. The patient is currently in acute phase. 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 03/26/2024 Obesity in (ICD-10 - O99.210) 03/26/2024 38 weeks gestation of (ICD-10 - Z3A.38) 03/18/2024 Segmental and somatic dysfunction of lumbar region (ICD-10 - M99.03) DIAGNOSIS: Upon consideration of the information available I have diagnosed Shena with the above diagnoses. The patient is currently in acute phase. Short Term Goals- decrease segmental dysfunction, decrease swelling and inflammation, decrease pain, relief care, relief of symptoms and pain management - Short Term Goals: slight improvement by next exam Mcc Goals- decrease segmental dysfunction, decrease swelling and inflammation, increase active and passive range of motion, strengthening, decrease muscle spasms, decrease pain, relief care, relief of symptoms, pain management, maximum medical improvement, increase proprioception, and decrease nociception senior care goals: significantly improved by discharge The patient's prognosis of current condition is Fair. 03/13/2024 Obesity in (ICD-10 - O99.210) 02/28/2024 Obesity in (ICD-10 - O99.210) 02/13/2024 32 weeks gestation of (ICD-10 - Z3A.32) 01/31/2024 with history of section, antepartum (ICD-10 - O34.219) 03/25/2024 Pain in thoracic spine (ICD-10 - M54.6) DIAGNOSIS: Upon consideration of the information available I have diagnosed Shena with the above diagnoses. The patient is currently in acute phase. 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 01/31/2024 Hx of preeclampsia, prior , currently (ICD-10 - O09.299) 03/18/2024 Lumbar spine pain (ICD-10 - M54.50) DIAGNOSIS: Upon consideration of the information available I have diagnosed Shena with the above diagnoses. The patient is currently in acute phase. 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 03/25/2024 Segmental and somatic dysfunction of lumbar region (ICD-10 - M99.03) DIAGNOSIS: Upon consideration of the information available I have diagnosed Shena with the above diagnoses. The patient is currently in acute phase. 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 03/26/2024 Other mental disorders complicating , third trimester (ICD-10 - O99.343) Pt with worsening anxiety. Has hydroxyzine at home that she had used outside of but has not taken it. Discussed safety of hydroxyzine and encouraged pt to take it as needed at night. Okay to take the night before her c/s. Also recommend starting an SSRI as pt was previously on lexapro and did well. Rx sent and recommend pt start akil to help with mood changes. >50% of this 20 minute visit was spent in [id number] time with patient discussing her , mental health and anxiety, reviewing treatment options, and discussing plan of care. 03/26/2024 Acute vaginitis (ICD-10 - N76.0) 03/25/2024 Lumbar spine pain (ICD-10 - M54.50) DIAGNOSIS: Upon consideration of the information available I have diagnosed Shena with the above diagnoses. The patient is currently in acute phase. 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 03/18/2024 Myofascial pain (ICD-10 - M79.18) DIAGNOSIS: Upon consideration of the information available I have diagnosed Shena with the above diagnoses. The patient is currently in acute phase. 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 03/26/2024 Vaginitis (ICD-10 - N76.0) 03/26/2024 Screen for STD (sexually transmitted disease) (ICD-10 - Z11.3) 03/26/2024 Encounter for screening examination for sexually transmitted disease (ICD-10 - Z11.3) 03/25/2024 Myofascial pain (ICD-10 - M79.18) DIAGNOSIS: Upon consideration of the information available I have diagnosed Shena with the above diagnoses. The patient is currently in acute phase. Short Term Goals- decrease segmental dysfunction, decrease swelling and inflammation, decrease pain, relief care, relief of symptoms and pain management - Short Term Goals: slight improvement by next exam Mcc Goals- decrease segmental dysfunction, decrease swelling and inflammation, increase active and passive range of motion, strengthening, decrease muscle spasms, decrease pain, relief care, relief of symptoms, pain management, maximum medical improvement, increase proprioception, and decrease nociception senior care goals: significantly improved by discharge The patient's prognosis of current condition is Fair. 03/26/2024 Encounter for screening examination for chlamydial infection (ICD-10 - Z11.8) 03/18/2024 Other Today's Treatment: chiropractic spinal physical exam and cmt 3-4 region - Chief Complaint: neck, mid and low back pain in 3rd trimester . - Primary Treatment: Diversified and Manual- Chiropractic Manipulative Therapy (CMT) to cervical, thoracic and lumbar spinal level(s). The following therapeutic exercises were performed with care today: none today - Post treatment: felt/noticed related improvement after treatment. discussed care and expectations for late gestation start. encouraged weekly care until , discussed after care. DIAGNOSIS: Upon consideration of the information available I have diagnosed Shena with the above diagnoses. The patient is currently in acute phase. Short Term Goals- decrease segmental dysfunction, decrease swelling and inflammation, decrease pain, relief care, relief of symptoms and pain management - Short Term Goals: slight improvement by next exam Mcc Goals- decrease segmental dysfunction, decrease swelling and inflammation, increase active and passive range of motion, strengthening, decrease muscle spasms, decrease pain, relief care, relief of symptoms, pain management, maximum medical improvement, increase proprioception, and decrease nociception senior care goals: significantly improved by discharge The patient's prognosis of current condition is Fair. 03/25/2024 Other Today's Treatment: chiropractic spinal physical exam and cmt 3-4 region - Chief Complaint: neck, mid and low back pain in 3rd trimester . - Primary Treatment: Diversified and Manual- Chiropractic Manipulative Therapy (CMT) to cervical, thoracic and lumbar spinal level(s). The following therapeutic exercises were performed with care today: none today - Post treatment: felt/noticed related improvement after treatment. discussed care and expectations for late gestation start. encouraged weekly care until , discussed after care. DIAGNOSIS: Upon consideration of the information available I have diagnosed Shena with the above diagnoses. The patient is currently in acute phase. Short Term Goals- decrease segmental dysfunction, decrease swelling and inflammation, decrease pain, relief care, relief of symptoms and pain management - Short Term Goals: slight improvement by next exam Mcc Goals- decrease segmental dysfunction, decrease swelling and inflammation, increase active and passive range of motion, strengthening, decrease muscle spasms, decrease pain, relief care, relief of symptoms, pain management, maximum medical improvement, increase proprioception, and decrease nociception senior care goals: significantly improved by discharge The patient's prognosis of current condition is Fair. 03/26/2024 Other see OB flowsheet for detailed plan 05/22/2024 Other 1. Unable to do pap today due to cycle 2. she is considering control options 3. Thyroid testing today 4. She is going to take keflex for mastitis 09/08/2024 Other Discussed R/B/A for all available control options. No history of thrombus, HTN. Non smoker. At this time she opts for: progesterone only pill given status. Discussed when we would transition to combo pill. Discussed importance of med compliance for effectiveness. Nystsatin sent for oral thrush. 02/29/2024 Other Surgeon: Jeanette Lee Diagnosis: Prior c/s ICD-10:O34.219 Procedure: Repeat c/s CPT: 35611 Special Equipment: SA if available, Desires 04/01 or 04/02 Surgeon Notes: Location: Hospitalization: yes Anesthesia: spinal Allergies: Health concerns: Time requested (minutes): 60 Consents needed: H&P day of Height: Weight: Date of Surgery: Time of Surgery: Patient Informed: Primary MD: HOWIE Tier: Plan Of Treatment No Information Insurance Providers Payer Name Payer Address Payer Phone Subscriber Number Group Number Insured Name Patient Relationship to Insured Coverage Start Date Coverage End Date [facility] 2021 JUSTO (CLIENT bill) [address] [place], [place] [id number] [id number] Shena Alonso Self - patient is the insured 4 Medical (General) History Medical History History ICD Code Migraines ADHD Anxiety/Depression Post- depression Leukocytosis Kidney Stones Hydronephrosis Surgical History Surgery Date(Month/Year) Thumb surgery Tonsillectomy C-Sectionx2 Hospitalization History Reason Date(Month/Year) childbirth Kidney stones Delivery/
--- OUTSIDE RECORDS SUMMARY | 2024-10-21 09:07 | XMS_ITS | Clinical Summary ---
Author Organization [facility] Address [address] [place] [address] Care Team Providers Care Personalized Living Assistant Name Role Phone Unavailable Primary Care Provider Unavailabl e Source Comments You are receiving this document as you are listed as the primary care provider,follow-up provider, or the patient has been referred to you for consultation.This is in compliance with the Medicare andMedicaid EHR Incentive Program,which states Providers who transition their patient to another setting of careor provider of care or refers their patient to another provider of care shouldprovide summary care record for each transition of care or referral. [facility] Allergies Active Allergy Reactions Criticality Noted Date Comments Morphine Nausea And Vomiting 07/20/2019 Medications acetaminophen (TYLENOL) 325 MG tablet Take 325-650 mg by mouth every 4 hours as needed for Pain. Active Vit-Fe Fumarate-FA ( VITAMINS) 28-0.8 MG TABS One tab daily 60 Tablet 3 0 Active ketoconazole (NIZORAL) 2 % shampoo Apply 1 Application topically daily. 2 Active SUMAtriptan (IMITREX) 50 MG tablet Take 50 mg by mouth daily. 2 Active triamcinolone acetonide (KENALOG) 0.1 % cream Apply topically two times a day. 2 Active ADDERALL XR 20 MG 24 hour release capsule Take 20 mg by mouth daily as needed. 2 Active valACYclovir (VALTREX) 500 MG tablet Take 500 mg by mouth two times daily as needed. 2 Active Multiple Vitamins-Mineral s (ZINC OR) Active LYSINE OR Active VITAMIN B COMPLEX-C OR Active omeprazole (PRILOSEC) 20 MG capsuleIndicatio ns:Fatigue, unspecified type,Gastroesoph ageal reflux disease without esophagitis Take 1 Capsule (20 mg) by mouth daily. Take 1 hour before a meal. 30 Capsule 2 Active Active Problems No known active problems Immunizations Immunization Administration Dates Next Due 4vHPV (Gardasil) 03/05/2007,10/11/2006, 7 DTaP 09/15/1993, 1,1989,1989,1989 Flu Vac (3+ yrs) 11/05/2020, 0,11/15/2011,2010,03/05/2007,01/24/2006,12/17/2002 Fluzone Qiv Multidose Vial 0 .25 (6-35 Mos) 11/11/2015 HepA Ped/Adol (1-18 yrs) 03/05/2007,06/06/2006 HepB Ped/Adol (0-18 yrs) 07/08/2002,12/19/2001 HepB, Unspecified Formulation 02/24/2002 IPV (Polio) 09/15/1993, 1,1989,1989 Influenza IIV4 (Quadrivalent ) 0.5mL (51089) 02/11/2021,11/15/2017 Influenza, Whole 12/21/2004 MCV4 (Menactra) 06/06/2006 MMR 01/22/2020,09/15/1993,10/09/1990 Pfizer Monovalent 12+ Purple Top 10/13/2020,0804/2020 Td (7+ yrs) 12/17/2002 Tdap 11/11/2019,12/10/2018,06/20/2007 Varicella 03/20/2019,02/11/2019 Social History Tobacco Use Types Packs/Day Years Used Date Smoking Tobacco: Never Smokeless Tobacco: Never Comments No Sex and Gender Information Value Date Recorded Sex Assigned at Not on file Legal Sex Female 10:04 AM CDT Gender Identity Not on file Sexual Orientation Not on file Last Filed Vital Signs Vital Sign Reading Time Taken Comments Blood Pressure 127/82 07/05/2021 7:14 PM CDT Pulse 98 07/05/2021 7:14 PM CDT Temperature 36.7 C (98 F) 07/05/2021 7:14 PM CDT Respiratory Rate 16 07/05/2021 7:14 PM CDT Oxygen Saturation 99% 07/05/2021 7:14 PM CDT Inhaled Oxygen Concentration - - Weight - - Height - - Body Mass Index - - Plan of Treatment Health Maintenance Due Date Last Done Comments Cervical Cancer Screening Due 1989 Hep C Screening (Preventive Services) 1989 HIV Screening (Preventive Services) 2005 Adult Preventive Visit 04/27/2007 COVID-19 Vaccine ( season) 2024 10/13/2020, 09/17/2020 Influenza Vaccine (#1) 2024 , 11/05/2020, 11/11/2019, Additional history exists DTaP/Tdap/Td Vaccine (9 - Tdap) 11/10/2029 11/11/2019, 12/10/2018, 06/20/2007, Additional history exists Zoster/Shingles Vaccine (1 of 2) 04/27/2039 IPV (Polio) Vaccine Completed 09/15/1993, 01/08/1991, 1989, Additional history exists HepB Vaccine Completed 07/08/2002, 02/06, 12/19/2001 MCV4 Vaccine Completed 06/06/2006 HPV Vaccine Completed 03/05/2007, 07/2006, 06/06/2006 HepA Vaccine Completed 03/05/2007, 06/06/2006 Hib Vaccine Aged Out No longer eligi ble based on patient's age to complete this topic Meningococcal B Vaccine Aged Out No l onger eligible based on patient's age to complete this topic Pneumococcal Vaccine Aged Out No long er eligible based on patient's age to complete this topic Insurance [id number] [place] [address] [facility]
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
--- OUTSIDE RECORDS SUMMARY | 2024-10-21 09:08 | XMS_ITS | Patient Health Record ---
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 NDC: [phone] Plan Of Treatment No Information Insurance Providers Payer Name Payer Address Payer Phone Subscriber Number Group Number Insured Name Patient Relationship to Insured Coverage Start Date Coverage End Date [facility] [address] [address] [place] [address] [phone] [id number] Shena Alonso Self - patient is the insured
--- OUTSIDE RECORDS SUMMARY | 2024-10-21 09:08 | XMS_ITS | Clinical Summary ---
Author Organization [facility] Address [address] [place] [id number] Care Team Providers Care Coal Carrier Name Role Phone Pcp, No Primary Care Provider Unavailabl e Allergies Active Allergy Reactions Criticality Noted Date Comments Morphine Nausea And Vomiting 07/20/2019 Active Problems Problem Noted Date Diagnosed Date MPP-Supervision of high-risk 0 Overview (12/16/2019): [facility] OB PATIENT NEXT VISIT ALERTS: PHQ Sign up for My Chart Sign LUPE for [facility] PLANS & FUTURE APPOINTMENTS: Needs more - OB visits: Through TESTING PLAN: weekly testing - Testing: Through GROWTH PLAN: - Growth: Next DELIVERY PLAN: - Scheduled delivery: - Preferred delivery location: PRIMARY DIAGNOSIS: 29 y.o. Estimated Date of Delivery: 01/30/20 skeletal dysplagia IUGR MATERNAL BMI=36.94 Late care LAST GROWTH: 12/10/19 32w3d EFW 1683 grams, percentile: 9 11/13/19 28w6d EFW 1039 grams, percentile:4 09/25/19 21w6d EFW 404 grams ECHO: REFERRING PHYSICIAN/PHONE/LAST UPDATE: Alanna Mckinley [phone] Primary MD approves scheduling of recommended ultrasounds/testing: yes SPECIALISTS/CONSULTS: Include: Specialty MD Clinic Name Phone# [place] and ADD TO TREATMENT TEAM [facility]PE signed for [facility]: Needs MATERNAL CARE COORDINATION: CARE COORDINATION: GEOLOGICAL E LOGGER: GENETICS: 12/09/2019 PROCEDURES: PERTINENT MEDS: ROUTINE OB: Flu vaccine: Date given: 11/11/19 Tdap vaccine: Date given: 11/11/2019 ANXIETY/DEPRESSION SCREEN: Initial screen: Date PHQ-9 score: ANA-7 score: 24 week screen: Due ~ PHQ-9 score: ANA-7 score: Previous history of anxiety or depression ? YES NO ROUTINE LABS: Blood type: A Pos Antibody screen: Neg Rhogam needed? NO Last pap:09/07/2019 WNL Plan for Gestational Diabetes screenin hour= 140, passed 3 hour gtt ( 78,146,141) Treponema Pallidum: DRAW @ 28 WEEKS Date drawn: GBS: Hemoglobin: Initial 13.3 28 wk 12.9 36 wk ADDITIONAL PERTINENT LABS: 11/27/19: Pre-e labs WNL PPTL& DELIVERY SCHEDULING: Do COVID testing @ 38w @ a main [facility] site H&P needed 30 days before delivery Date: PPTL: Yes No Is Medical assistance? 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 Gender Identity Not on file Sexual Orientation Not on file Obstetrics History Para Term AB IAB SAB Ectopic Multiple Livin g Live Births 1 Date Outcome GA Total Labor Labor/2nd/3rd Weight Sex Type Anes PTL Anny A1 A5 Name Clin Plan of Treatment Health Maintenance Due Date Last Done Comments Tetanus booster 2000 Depression screening for age 12+ 2001 HIV for age 15-65 2004 BMI (ht and wt on same day) for age 18+ 04/27/2007 Hepatitis C screening for ag e 18-79 04/27/2007 Hepatitis B series for 19+ ( 1 of 3 - 19+ 3-dose series) 2008 Pap test for age 21-65 2010 HPV series for age 9-45 (1 - 3-dose SCDM series) 2016 COVID-19 vaccine series ( - 2023- season) 2024 10/13/2020, 09/17/2020 Influenza Vaccine (#1) 2024 RSV vaccine for adults or (1 - 1-dose 75+ series) 2064 Pneumococcal series for age 6-49 Aged Out No longer eligible b ased on patient's age to complete this topic Insurance [facility] Care Teams Coal Carrier Relationship Specialty Start Date End Date Pcp, No . PCP - General 03/18/19
[2024-10-21] MEDS: ONDANSETRON 2 MG/ML inj 4 MG IVP ×3 (09:09→16:25)
[2024-10-21] MEDS: MORPHINE 4 MG/ML INJ IVP ×2 (09:09→09:35)
[2024-10-21 09:10] LABS: Lactate Sepsis w/Reflex* 1.5 mmol/L (0.5-1.9)
[2024-10-21 09:11] LABS: Hematocrit* 38.2 % (33.0-51.0); Hemoglobin* 12.6 gm/dL (12.0-16.0); Immature Granulocytes Pct Auto 0.3 %; Mean Corpuscular HGB Conc 33 gm/dL (32-36); Mean Corpuscular Hemoglobin 28 pg (26-34); Mean Corpuscular Volume 85 fL (80-100); RDW Coefficient of Variation % 13.3 % (11.5-15.5); Red Blood Count* 4.51 m/uL (4.00-5.20); White Blood Count* 15.29 K/uL (4.50-11.00)
[2024-10-21 09:13] LABS: Immature Granulocytes Abs Auto 0.00 K/uL (0.00-0.30); Lymphocytes Absolute Auto 2.80 K/uL (0.90-2.90); Slide Review Reflex No
[2024-10-21 09:26] LABS: Chloride* 109 mmol/L (96-114); Potassium* 4.4 mmol/L (3.6-5.1); Sodium* 135 mmol/L (135-149)
[2024-10-21 09:29] LABS: Alanine Aminotransferase* 45 U/L (4-35); Alkaline Phosphatase* 75 U/L (40-150); Anion Gap 7 mEq/L (7-15); Aspartate Amino Transferase* 42 U/L (12-35); Bilirubin Total* 0.4 mg/dL (0.1-1.5); Blood Urea Nitrogen* 19 mg/dL (5-24); Calcium* 8.9 mg/dL (8.4-10.6); Carbon Dioxide* 19 mmol/L (20-32); Creatinine* 0.6 mg/dL (0.5-1.5); Est. Creatinine Clearance* 113.01; Estimated Glomerular Filt Rate 120 ml/min; Glucose* 125 mg/dL (60-115); Total Protein* 6.9 g/dL (6.0-8.3)
[2024-10-21 09:56] LABS: Albumin* 4.0 g/dL (3.3-5.0)
[2024-10-21 09:59] LABS: HCG Qualitative Serum* Positive (Negative)
--- NOTE | 2024-10-21 10:16 | CRLHL7_ITS ---
For Patients: As a result of the Century Cures Act, medical imaging exams and procedure reports are released immediately into your electronic medical record. You may view this report before your referring provider. If you have questions, please contact your health care provider. CLINICAL HISTORY: Quantitative beta greater than 3000. Pelvic pain, probable ectopic COMPARISON: 10/21/2024 TECHNIQUE: 2D bonilla-scale and color Doppler images were acquired of the pelvis using a transvaginal approach. FINDINGS: The uterus appears normal without fibroid. Incidental cervical nabothian cysts are present. The endometrial stripe measures 10 millimeters. No intrauterine gestational sac. No endometrial fluid. Right adnexal mass is present measuring 2.1 x 1.6 x 1.6 cm. Extensive surrounding heterogeneous echotexture throughout the right adnexa with associated mild layering free fluid. IMPRESSION: Findings are consistent with ruptured ectopic in the right adnexa. Reviewed with Dr. Ellsworth following the completion of the examination at 11:40 a.m 10/21/2024. Dictated by Harshad Elder MD @ 10/21/2024 11:56:31 AM (Electronically Signed)
[2024-10-21 10:51] LABS: HCG Quantitative* 3120.10 mIU/mL
[2024-10-21] MEDS: LACTATED RINGERS 1000 ML 1,000 ML 100 ML IV ×2 (12:30→13:38)
[2024-10-21] MEDS: BUPIVACAINE 0.25% 30 ML INJECTION (13:02)
--- NOTE | 2024-10-21 13:30 | P.ANES_ITS ---
Anesthesia Charges Start Date/Time Anesthesia Start Date: 10/21/24 Anesthesia Start Time: 12:28 Stop Date/Time Anesthesia Stop Date: 10/21/24 Anesthesia Stop Time: 14:35 Summary Emergency: MEERA Coding CPT Codes CPT Codes: ANESTH SURG LOWER ABDOMEN - 09615 ([id number]) P2 - PATIENT W/MILD SYST DISEASE, QK - ENAMEL SHADER 2-4 CNCRNT ANES PROC, QX - RECRUITING SCHEDULER SVC W/ MD MED DIRECTION Additional Codes: Summary - Emergency: MEERA ([id number])
--- NOTE | 2024-10-21 13:30 | W.ANESCHARGE ---
Anesthesia Charges Start Date/Time Anesthesia Start Date: 10/21/24 Anesthesia Start Time: 12:28 Stop Date/Time Anesthesia Stop Date: 10/21/24 Anesthesia Stop Time: 14:35 Summary Emergency: MEERA Coding CPT Codes CPT Codes: ANESTH SURG LOWER ABDOMEN - 86263 ([id number]) P2 - PATIENT W/MILD SYST DISEASE, QK - RETAIL SEASONAL SPECIALIST 2-4 CNCRNT ANES PROC, QX - AUTO FLEET MANAGER SVC W/ MD MED DIRECTION Additional Codes: Summary - Emergency: MEERA ([id number])
[2024-10-21] MEDS: SILVER NITRATE APPLICATOR 1 EACH STICK..EA. TOPICAL (14:13)
--- NOTE | 2024-10-21 14:55 | P.GYNCN_ITS ---
ORACLE ERP DEVELOPER - CN: HPI Data of Consult Date Seen: 10/21/24 Patient: Other Requesting Physician: Davion Dela Cruz MD Primary Care Provider: Not a Local Provider Consult Narrative Narrative: Shena Alonso is a 34 year old [id number] woman who is seen by kind request of Dr. Reed Ellsworth for management of suspected ectopic . Shena cornejo oped severe pain today, leading her to present to the ER. She has had vomiting during her time here. She initially had an ultrasound of the pelvis showing greater than expected blood in the cul-de-sac and has solid right adnexal lesion, but dimensions were not provided in the initial report; study was limited by patient intolerance. CT scan was considered, but her test was then found to be positive. Subsequently, she had a quantitative HCG of 3120 and repeat attempt had ultrasound, which showed no intrauterine . Obstetric and gynecologic history: She is 6 months status post her 2nd delivery. She has had 1 termination of many years ago. She has a history of genital herpes. Otherwise, no history of sexually transmitted infection or pelvic inflammatory disease. She reports regular but heavy menses. No history of abnormal Pap. cc:: CC: Davion Dela Cruz MD [facility] Medical History (Updated 10/21/24 @ 17:44 by So Candelaria MD) Dysmenorrhea ?N94.6 - Dysmenorrhea, unspecified (ICD-10) Menorrhagia ?N92.0 - Excessive and frequent menstruation with regular cycle (ICD-10) Surgical History (Updated 10/21/24 @ 17:44 by So Candelaria MD) H/O thumb surgery ?Z98.890 - Other specified postprocedural states (ICD-10) Hx of tonsillectomy ?Z90.89 - Acquired absence of other organs (ICD-10) History of low transverse section ?Z98.891 - History of uterine scar from previous surgery (ICD-10) Social History Narrative: She lives in [place] with her fiance and 2 daughters, ages 4 and 6 months. 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 She does not smoke or use recreational drugs. She rarely drinks alcohol. Non-prescribed substance use: denies use Meds Home Medications and Allergies Home Medications ?Medication ?Instructions ?Recorded ?Confirmed ?Type acetaminophen 500 mg tablet 1,000 mg (2 x 500 mg) PO Q 6H PRN 10/21/24 Rx Pain #0 tabs oxycodone 5 mg tablet 5 mg PO Q4H PRN 4 OR GREATER ON 10/21/24 Rx PAIN SCALE #20 tabs Allergies Allergy/AdvReac Type Severity Reaction Status Date / Time No Known Drug Allergies Allergy Verified 10/21/24 08:08 ORACLE ERP DEVELOPER - Exam Physical Exam: Vital signs: Temp Pulse Resp BP Pulse Ox O2 Del Method 98 F 105 H 16 120/76 95 Room Air 10/21/24 14:35 10/21/24 14:50 10/21/24 14:50 10/21/24 14:50 10/21/24 14:50 10/21/24 14:50 Narrative: Physical exam: Vitals as noted above. General: No acute distress Psych: Alert and oriented x 3, full affect, reports nausea throughout her interview HEENT: Normocephalic, atraumatic Heart: Regular rate and rhythm, no murmur or gallop Lungs: Were clear to auscultation bilaterally Abdomen: protuberant, scar well healed ORACLE ERP DEVELOPER - Results Labs Labs: Short CBC 10/21/24 Range/Units 09:05 WBC 15.29 H (4.50-11.00) K/uL Hgb 12.6 (12.0-16.0) gm/dL Hct 38.2 (33.0-51.0) % Plt Count 317 (140-440) K/uL BMP 10/21/24 09:05 Sodium 135 Potassium 4.4 Chloride 109 Carbon Dioxide 19 L BUN 19 Creatinine 0.6 Glucose 125 H Calcium 8.9 Liver Function 10/21/24 Range/Units 09:05 Total Bilirubin 0.4 (0.1-1.5) mg/dL AST 42 H (12-35) U/L ALT 45 H (4-35) U/L Alkaline Phosphatase 75 (40-150) U/L Albumin 4.0 (3.3-5.0) g/dL Assessment and Plan Assessment and plan (1) Ectopic , tubal: Status: Acute Assessment and Plan: Likely ruptured given fluid in the pelvis. She is slightly tachycardic, but other vital signs are stable. Hemoglobin is normal. I recommended laparoscopic approach to treat ectopic . We discussed options of salpingostomy and salpingectomy. She specifically requested that I leave her tube in place if possible; thus, I will plan for salpingostomy if feasible. She will need serial quantitative HCGs after this procedure until they reached non range. She expressed understanding of this need for monitoring. Should HCGs reveal persistent living placental tissue, we would plan for treatment with methotrexate; she also expressed understanding of this. We discussed risks of these procedures, including bleeding/hemorrhage, infection, damage to internal organs, risks of anesthesia. Consent form was reviewed with and signed by patient. No preoperative antibiotics. Patient is Rh positive.
--- NOTE | 2024-10-21 15:21 | P.ANES_ITS ---
Anesthesia Charges Start Date/Time Anesthesia Start Date: 10/21/24 Anesthesia Start Time: 12:28 Stop Date/Time Anesthesia Stop Date: 10/21/24 Anesthesia Stop Time: 14:35 Summary Emergency: GIFT SHOP MANAGER Coding CPT Codes CPT Codes: ANESTH SURG LOWER ABDOMEN - 61094 ([id number]) P2 - PATIENT W/MILD SYST DISEASE, QK - ROAD FREIGHT CONDUCTOR 2-4 CNCRNT ANES PROC, QX - GIFT SHOP MANAGER SVC W/ MD MED DIRECTION Additional Codes: Summary - Emergency: GIFT SHOP MANAGER ([id number])
--- NOTE | 2024-10-21 15:21 | W.ANESCHARGE ---
Anesthesia Charges Start Date/Time Anesthesia Start Date: 10/21/24 Anesthesia Start Time: 12:28 Stop Date/Time Anesthesia Stop Date: 10/21/24 Anesthesia Stop Time: 14:35 Summary Emergency: TECH ED/WOODSHOP TEACHER Coding CPT Codes CPT Codes: ANESTH SURG LOWER ABDOMEN - 80400 ([id number]) P2 - PATIENT W/MILD SYST DISEASE, QK - LEAF SORTER 2-4 CNCRNT ANES PROC, QX - TECH ED/WOODSHOP TEACHER SVC W/ MD MED DIRECTION Additional Codes: Summary - Emergency: TECH ED/WOODSHOP TEACHER ([id number])
--- NOTE | 2024-10-21 17:51 | P.GYNPRC_ITS ---
Procedure Note Date of procedure: 10/21/24 Will [facility] bill your pro fee for this procedure?: Yes Pre-op diagnosis: Ruptured ectopic Post-op diagnosis: Omental adhesions to anterior abdominal wall Left ectopic with hemoperitoneum Procedure: Laparoscopic salpingostomy with evacuation of hemoperitoneum Lysis of omental adhesions Anesthesia: GETA Complications: Uterine perforation with uterine manipulator in anterior uterus; hemostatic Surgeon: So Candelaria MD Estimated blood loss (mL): 400 IV fluids (mL): 900 Urine Output (mL): 300 Pathology: specimen obtained, sent to pathology (left tubal ectopic) Condition: stable Disposition: PACU Findings: 1. Upon pelvic exam under anesthesia, vagina and cervix were normal in appearance. Uterus was mobile, anteverted, and of normal size and texture. 2. Upon laparoscopy, hemoperitoneum was noted throughout the abdomen and pelvis; approximately 400 mL of intraperitoneal blood was noted. Survey of the upper abdomen revealed a normal appearance to the inferior edge of the liver, gallbladder and stomach. Bowels were grossly normal appearance. Appendix was not visualized. Survey of the pelvis revealed normal appearance to the uterus. The left fallopian tube was dilated from its mid isthmic portion to the fimbriated edge, and was surrounded by largely clotted blood. Upon incision into the tube, small amount of tissue consistent in appearance with placental was removed. Right ovary was adherent to the right fallopian tube in its distal portion, but the tube overall was not distorted. Right tube and ovary were entirely normal in appearance. Bilateral tubes and ovaries were normal in appearance. The cul-de-sac was normal in appearance. The bladder reflection was scarred, consistent in appearance with previous deliveries. There was a large fascial defect just left of midline in the lower anterior abdominal wall, where omentum was adherent. There was no visible rectus diastasis above this defect. Procedure Description: Patient was taken to the operating room with IV running. She was positioned in dorsal lithotomy position with her legs fully supported in Yellofin stirrups. General anesthesia was administered. She was prepped and draped in the usual sterile fashion. Bimanual exam was performed for the above-noted findings. Speculum was inserted. A single-toothed uterine manipulator was inserted through the cervix into the lower uterine segment, and affixed to the anterior cervical lip. Speculum was removed. Christianson catheter was placed. Patient's legs were placed in neutral position. Attention was turned to patient's abdomen. The infraumbilical area was infiltrated with small amount of Marcaine. An infraumbilical incision was made with a scalpel and carried through to the underlying layer of fascia with a hemostat. The 5 mm Fios Kii trocar was assembled with laparoscope within, and insufflator attached. While tenting up the abdomen manually, the trocar was passed through the anterior abdominal wall into the peritoneal cavity. Trocar was removed. Pneumoperitoneum was achieved. Survey of abdomen and pelvis revealed the above-noted findings. First, an additional port site was created in the patient's right lower quadrant. This area was infiltrated with a small amount of Marcaine, and a 5 mm incision was made with a scalpel after assuring the large vessels were out of harm's way. A 5 mm Fios Kii port was inserted at this site under direct visualization and without complication. The balloon tip was inflated. The Thunderbeat device was was then used to lyse the omental adhesion to the anterior abdominal wall, after assuring that there was no bowel within the adhesion. Hemostasis was noted after release, and this revealed the large fascial defect as described above. Two additional port sites were created. The first was in the patient's left lower quadrant, just superior medial to the left ASIS. The second was a hand's breath superior to and slightly medial to the first. Each was infiltrated with small amount of Marcaine prior to incision. An 11 mm incision was made at the left lower quadrant port site, and a 5 mm incision was made at the other, after making sure the large vessels were out of harm's way. An 11 mm Fios Kii port was inserted at the left lower quadrant site, and a 5 mm port at the other site, under direct visualization and without complication. The balloon on each of the ports was inflated, holding each in place. Suction special forces warrant officer was used to evacuate the peritoneal cavity of the majority of the clotted blood. With attempt at uterine manipulation, perforation into the anterior midline uterus from the uterine manipulator was noted. The manipulator was removed. The scarred bladder reflection was dissected gently downward, revealing the pe rforation to be hemostatic and not involving the bladder. The left tube was grasped with atraumatic graspers in its midportion. A linear longitudinal incision of approximately 1 cm in length was made with laparoscopic marisela over the middle of the dilated portion of the left tube. Immediately beneath this, placental material was visualized. This was grasped with Betsy forceps and removed with gentle traction. Specimen was placed along the bladder reflection for later retrieval. The tube was then irrigated with a 5 mm suction special forces warrant officer and no further placental tissue was released. An Endo-Catch bag was placed through the left lower quadrant port site and the remains of the left tubal ectopic were placed in this bag and removed. These were sent to pathology. The left tube was re-examined and found to be hemostatic; no cautery was required. The 11 mm Fios Kii port in the left lower quadrant was removed after balloon on the port was deflated. The Yobani-Eli laparoscopic closure device was inserted through this port. With the help of this device, the fascia was closed with a single suture of 0-Vicryl. Procedure was deemed complete. The balloons of all remaining port sites were deflated, and all ports were removed after pneumoperitoneum was released. The skin of each port site was closed in a subcuticular fashion with 4 0 Monocryl. Surgical glue was applied above this. Patient tolerated procedure well and was taken to recovery area in stable condition. Postoperative debrief was verbalized with OR staff, including a verification of pathology specimens to be sent as described above.
[2024-10-21 18:11] LABS: Hemoglobin* 10.8 gm/dL (12.0-16.0)
[2024-10-21] MEDS: ACETAMINOPHEN 500 MG TABLET 1000 MG PO (18:30)
--- NOTE | 2024-10-21 20:28 | PM.GYNPNPO ---
HOT METAL MIXER OPERATOR HELPER - A/P Assessment and plan (1) Ectopic , tubal: Status: Acute (2) H/O salpingostomy: Problem details: Laparoscopic, For ectopic 10/21/2024, complicated by large ecchymosis surrounding right lower quadrant port site Status: Acute Plan Recommended admission for observation and serial hemoglobin measurements, as well as monitoring of the size of the ecchymosis. Should the ecchymoses enlarged markedly, I favor CT of the abdomen to rule out any active bleeding. Otherwise, we will monitor pain and hemoglobin levels and plan for discharge in business development sales executive Postoperative Procedures: Procedures Operation Date: 10/21/24 12:30 Actual Procedure Side Surgeon p Laparoscopic Salpingostomy and Lysis of Adhesions So Candelaria MD Time Spent With Patient Time: Total time spent is greater than 50% in coordination of care (as documented) at patient's floor/unit and/or counseling patient: Time with patient: 25 - 35 minutes HOT METAL MIXER OPERATOR HELPER- PN:Subj Post-Op Subjective Date Seen: 10/21/24 Post Operative Details: Post-operative day number 0: status post laparoscopic left salpingostomy and lysis of adhesions in the setting of ruptured ectopic with hemoperitoneum. I evaluated patient after nurse reported a large ecchymosis surrounding her right lower quadrant port site. At the time my evaluation, Shena was reporting some pain in her upper abdomen radiating to her right shoulder. She is feeling hungry and would like to order dinner. I discussed the intraoperative findings with her and her family. HOT METAL MIXER OPERATOR HELPER-PN: Obj Exam Physical Exam: Vital signs: Temp Pulse Resp BP Pulse Ox O2 Del Method O2 Flow Rate 94.7 F L 99 16 125/80 99 Room Air 2 10/21/24 16:15 10/21/24 18:42 10/21/24 18:42 10/21/24 18:42 10/21/24 17:15 10/21/24 16:15 10/21/24 15:15 Narrative: Physical exam: Vitals as noted above. General: No acute distress, lying in bed with her 6-month-old and Psych: Alert and oriented x 3, full affect HEENT: Normocephalic, atraumatic Abdomen: Right lower quadrant laparoscopic port site is surrounded by a large ecchymoses measuring approximately 20 cm in width by 10 cm in length. The incision itself is intact and not leaking. The remaining port sites appear healthy. Her abdomen is soft and mildly tender to the touch, with most tenderness noted in her low pelvis. HOT METAL MIXER OPERATOR HELPER - PN: Obj Data Labs Labs: Laboratory Results - last 24 hr 10/21/24 10/21/24 10/21/24 09:05 10:09 10:20 WBC 15.29 H RBC 4.51 Hgb 12.6 Hct 38.2 MCV 85 MCH 28 MCHC 33 RDW Coeff of Meri 13.3 Plt Count 317 Neut % (Auto) 77.3 H Lymph % (Auto) 18.1 L [place] % (Auto) 3.9 Eos % (Auto) 0.3 Baso % (Auto) 0.1 Neut # (Auto) 11.80 H Lymph # (Auto) 2.80 [place] # (Auto) 0.60 Eos # (Auto) 0.00 Baso # (Auto) 0.00 Abs Immat Gran (auto) 0.00 Imm/Tot Granulo (auto) 0.3 Sodium 135 Potassium 4.4 Chloride 109 Carbon Dioxide 19 L Anion Gap 7 BUN 19 Creatinine 0.6 Estimated Creat Clear 113.01 Estimated GFR 120 Glucose 125 H Lactate 1.5 Calcium 8.9 Total Bilirubin 0.4 AST 42 H ALT 45 H Alkaline Phosphatase 75 Total Protein 6.9 Albumin 4.0 HCG, Qual Positive HCG, Quant 3120.10 Lab Acknowledgement Test Added Blood Type A Positive Antibody Screen NEGATIVE 10/21/24 18:04 WBC RBC Hgb 10.8 L Hct MCV MCH MCHC RDW Coeff of Meri Plt Count Neut % (Auto) Lymph % (Auto) [place] % (Auto) Eos % (Auto) Baso % (Auto) Neut # (Auto) Lymph # (Auto) [place] # (Auto) Eos # (Auto) Baso # (Auto) Abs Immat Gran (auto) Imm/Tot Granulo (auto) Sodium Potassium Chloride Carbon Dioxide Anion Gap BUN Creatinine Estimated Creat Clear Estimated GFR Glucose Lactate Calcium Total Bilirubin AST ALT Alkaline Phosphatase Total Protein Albumin HCG, Qual HCG, Quant Lab Acknowledgement Blood Type Antibody Screen
[2024-10-21] MEDS: IBUPROFEN 600 MG TABLET PO (20:35)
[2024-10-21 22:08] LABS: Hemoglobin* 10.2 gm/dL (12.0-16.0)
[2024-10-21] MEDS: SIMETHICONE 80 MG TAB.CHEW PO (22:23)
[2024-10-22] VITALS (10 sets, daily range): BP systolic 99–134; BP diastolic 61–86; PULSE 81–117; RESP 16–20; TEMP 36.3–37; O2SAT 95–99
[2024-10-22] MEDS: ACETAMINOPHEN 500 MG TABLET 1000 MG PO ×3 (00:03→21:43)
[2024-10-22] MEDS: IBUPROFEN 600 MG TABLET PO ×2 (02:22→18:32)
[2024-10-22 02:31] LABS: Hemoglobin* 9.7 gm/dL (12.0-16.0)
--- NOTE | 2024-10-22 02:53 | CRLHL7_ITS ---
For Patients: As a result of the Century Cures Act, medical imaging exams and procedure reports are released immediately into your electronic medical record. You may view this report before your referring provider. If you have questions, please contact your health care provider. INDICATION: Lower abdominal pain. TECHNIQUE: CT abdomen and pelvis without contrast. COMPARISON: Pelvic ultrasound 10/21/2024. FINDINGS: Lower chest: Mild bibasilar atelectasis. Liver: Normal in size and attenuation. Gallbladder and bile ducts: No stones or inflammation. No biliary ductal dilatation. Spleen: Normal in size. Adrenal glands: Normal in size. No nodules. Pancreas: No inflammation. Kidneys: Nonobstructive right renal calculi. No hydronephrosis. GI tract: Normal in caliber. No evidence of obstruction. Normal appendix. Lymph nodes: No lymphadenopathy. Vasculature: Abdominal aorta is normal in caliber. Abdominal wall/Omentum/Peritoneum: Small volume free fluid in the pelvis with dependent hyperdensity likely representing blood products. Scattered pneumoperitoneum and periumbilical subcutaneous emphysema, likely postsurgical. Right abdominal wall skin thickening with subcutaneous stranding and edema. Pelvis: Unremarkable. Bones: Severe disc degeneration L5-S1. IMPRESSION: 1. Small volume hemoperitoneum in the pelvis. 2. Scattered pneumoperitoneum and periumbilical subcutaneous emphysema, likely postsurgical. 3. Right abdominal wall skin thickening with subcutaneous stranding and edema, nonspecific. Please note that all CT scans at this facility use dose modulation, iterative reconstruction, and/or weight-based dosing when appropriate to reduce radiation dose to as low as reasonably achievable. Dictated by Lewis Camargo MD @ 10/22/2024 3:33:37 AM (Electronically Signed)
[2024-10-22] MEDS: LACTATED RINGERS 1000 ML 1,000 ML 125 ML IV ×2 (04:00→07:43)
--- NOTE | 2024-10-22 04:07 | PM.GYNPNPO ---
GENER[employer] ROAD PRODUCTION MANAGER - A/P Assessment and plan (1) H/O salpingostomy: Problem details: Laparoscopic, For ectopic 10/21/2024, complicated by large ecchymosis surrounding right lower quadrant port site Status: Acute Assessment and Plan: Eccymosis of anterior abdominal wall surrounding RLQ port site. Likely injury of branch of right inferior epigastric. She has had a persistent drop in hemoglobin during her postoperative course and an enlarging hematoma of the abdominal wall. There has been no change in the appearance of this in the last 2 hours. She has been intermittently tachycardic since her presentation in the ER; at this time, she has normal heart rate. Overall, vital signs are stable. CT does not show large volume intraperitoneal fluid, and I expected a small amount of residual blood clot in pelvis as there was blood in the upper abdomen at laparoscopic entry that I could not entirely evacuate at time of laparoscopy. The CT cannot evaluate for active bleeding in the anterior abdominal wall; findings note only Right abdominal wall skin thickening with subcutaneous stranding and edema, nonspecific. Overall, I favor continued observation over reoperation at this time. I will reevaluate on exam around 0600. Repeat Hb at around that time. (2) Postoperative pain: Status: Acute Assessment and Plan: Suspect evolving ileus secondary to residual hemoperitoneum. NPO. LR 125 cc / hr. Dilaudid 0.2-0.5 mg IV Q hour prn. Zofran IV for nausea. Postoperative Procedures: Procedures Operation Date: 10/21/24 12:30 Actual Procedure Side Surgeon p Laparoscopic Salpingostomy and Lysis of Adhesions So Candelaria MD Postoperative day: 1 Time Spent With Patient Time: Total time spent is greater than 50% in coordination of care (as documented) at patient's floor/unit and/or counseling patient: Time with patient: 25 - [address] PRODUCTION MANAGER- PN:Subj Post-Op Subjective Date Seen: 10/22/24 Post Operative Details: Post-operative day number 1: status post laparoscopic left salpingostomy and lysis of adhesions in the setting of ruptured ectopic with hemoperitoneum. I was called to evaluate the patient for severe post-op pain and expanding abdominal wall hematoma. Since my last evaluation, she has been switched from oxycodone to oral Dilaudid. She has been able to ambulate and urinate, and has tolerated a regular diet. However, pain has not improved much with switch to Dilaudid. She is currently reporting a migraine and is experiencing some upper abdominal and right shoulder pain. GENER[employer] [facility] PRODUCTION MANAGER-PN: Obj Exam Physical Exam: Vital signs: at 0405: BP 129/86, HR 95, RR 20, T 97.4, O2 98 She has been intermittently tachycardic throughout the night Narrative: Physical exam: Vitals as noted above. General: Sitting in recliner in obvious pain, cloth on forehead Psych: Alert and oriented x 3, full affect HEENT: Normocephalic, atraumatic Abdomen: Right lower quadrant laparoscopic port site is surrounded by a large ecchymoses measuring approximately 20 cm in width by 10 cm in length. The borders were marked at around 1800. There has been enlargement around the borders of the initial marking, extending by several centimeters in the lateral dimension, but the areas of extention are liner roll changer in color and quite subtle along the margins. The incision itself is intact and not leaking. There is some slight bruising noted around the umbilical port site as well; otherwise, remaining port sites appear healthy. Bowel sounds are hypoactive. [facility] [facility] PRODUCTION MANAGER - PN: Obj Data Labs Labs: Laboratory Results - last 24 hr 10/21/24 10/21/24 10/21/24 09:05 10:09 10:20 WBC 15.29 H RBC 4.51 Hgb 12.6 Hct 38.2 MCV 85 MCH 28 MCHC 33 RDW Coeff of Meri 13.3 Plt Count 317 Neut % (Auto) 77.3 H Lymph % (Auto) 18.1 L Vance % (Auto) 3.9 Eos % (Auto) 0.3 Baso % (Auto) 0.1 Neut # (Auto) 11.80 H Lymph # (Auto) 2.80 [place]ance # (Auto) 0.60 Eos # (Auto) 0.00 Baso # (Auto) 0.00 Abs Immat Gran (auto) 0.00 Imm/Tot Granulo (auto) 0.3 Sodium 135 Potassium 4.4 Chloride 109 Carbon Dioxide 19 L Anion Gap 7 BUN 19 Creatinine 0.6 Estimated Creat Clear 113.01 Estimated GFR 120 Glucose 125 H Lactate 1.5 Calcium 8.9 Total Bilirubin 0.4 AST 42 H ALT 45 H Alkaline Phosphatase 75 Total Protein 6.9 Albumin 4.0 HCG, Qual Positive HCG, Quant 3120.10 Lab Acknowledgement Test Added Blood Type A Positive Antibody Screen NEGATIVE 10/21/24 10/21/24 10/22/24 18:04 22:04 02:25 Hgb 10.8 L 10.2 L [address] scan - pelvis: Attestation: I have reviewed the pertinent imaging results. My impression: Unable to evaluate for active bleeding without contrast Radiologist's impression: Abdominal wall/Omentum/Peritoneum: Small volume free fluid in the pelvis with dependent hyperdensity likely representing blood products. Scattered pneumoperitoneum and periumbilical subcutaneous emphysema, likely postsurgical. Right abdominal wall skin thickening with subcutaneous stranding and edema. Pelvis: Unremarkable. Bones: Severe disc degeneration L5-S1. IMPRESSION: 1. Small volume hemoperitoneum in the pelvis. 2. Scattered pneumoperitoneum and periumbilical subcutaneous emphysema, likely postsurgical. 3. Right abdominal wall skin thickening with subcutaneous stranding and edema, nonspecific.
[2024-10-22] MEDS: ONDANSETRON 2 MG/ML inj 4 MG IVP ×2 (04:24→10:55)
[2024-10-22 05:58] LABS: Hematocrit* 28.4 % (33.0-51.0); Hemoglobin* 9.4 gm/dL (12.0-16.0); Immature Granulocytes Pct Auto 0.4 %; Mean Corpuscular HGB Conc 33 gm/dL (32-36); Mean Corpuscular Hemoglobin 28 pg (26-34); Mean Corpuscular Volume 86 fL (80-100); RDW Coefficient of Variation % 13.9 % (11.5-15.5); Red Blood Count* 3.31 m/uL (4.00-5.20); White Blood Count* 19.42 K/uL (4.50-11.00)
[2024-10-22 06:01] LABS: Immature Granulocytes Abs Auto 0.10 K/uL (0.00-0.30); Lymphocytes Absolute Auto 1.80 K/uL (0.90-2.90); Slide Review Reflex No
[2024-10-22 06:36] LABS: Chloride* 103 mmol/L (96-114); Potassium* 3.8 mmol/L (3.6-5.1); Sodium* 137 mmol/L (135-149)
[2024-10-22 06:39] LABS: Anion Gap 8 mEq/L (7-15); Blood Urea Nitrogen* 14 mg/dL (5-24); Calcium* 8.3 mg/dL (8.4-10.6); Carbon Dioxide* 26 mmol/L (20-32); Creatinine* 0.7 mg/dL (0.5-1.5); Est. Creatinine Clearance* 96.86; Estimated Glomerular Filt Rate 116 ml/min; Glucose* 153 mg/dL (60-115)
[2024-10-22] MEDS: ACETAMINOPHEN INJ 1,000 MG/100 ML VIAL 400 MG IVPB (07:53)
--- NOTE | 2024-10-22 08:14 | P.GYNPN_ITS ---
SCREENING REPRESENTATIVE - A/P Assessment and plan (1) H/O salpingostomy: Problem details: Laparoscopic, For ectopic 10/21/2024, complicated by large ecchymosis surrounding right lower quadrant port site Status: Acute (2) Postoperative pain: Status: Acute Plan Ms. Alonso is a 34yo seen on POD1 from laparoscopic right salpingostomy and evacuation of hemoperitoneum for ruptured tubal ectopic . Post-op course notable for difficulty with pain control, large RLQ ecchymosis. With regard to her apparent RLQ port site hematoma with concern for possible injury to a branch of the inferior epigastric, Hgb has been trended: 12.6 (pre- op) > 10.8 > 10.2 > 9.7 > 9.4 with next set due at 0930. Noncontrast CT of the abdomen pelvis was performed overnight, where a small volume hemoperitoneum in the pelvis was noted with right abdominal wall skin thickening and subcutaneous stranding/edema that is nonspecific but likely represents ecchymosis. Patient course and plan had been reviewed by Dr. Candelaria with Dr. Asencio of general surgery, where continued expectant management with serial abdominal exams and hemoglobin was recommended. With next hemoglobin check, it was noted to downtrend 8.6. As such, I did recommend that we repeat CT abdomen and pelvis with IV contrast and angio to exclude the potential for active bleeding from a subcutaneous vessel, inferior epigastrics or intra-abdominally. Repeat CT of A/P with IV contrast/angio noted unchanged small volume pelvic cul-de-sac hemoperitoneum, no discrete subcutaneous or intramuscular hematoma, no active bleeding and persistent thickening of the skin in the right lower anterior abdominal wall with stranding in subcutaneous fat consistent with known ecchymosis/hemorrhage. There was also redemonstration of anterior preperitoneal soft tissue gas consistent with a recent laparoscopic surgery, where I suspect this may be secondary simply to insufflation of the preperitoneal space. Next hemoglobin demonstrated stability at 8.7. I returned to the patient's bedside just prior to this hemoglobin being drawn, we again reviewed her course in detail and imaging. Explained that fortunately the repeat CT abdomen and pelvis fails to demonstrate significant or worsening hemoperitoneum, does not show any evidence of active bleeding from a subcutaneous nor inferior epigastric vessel. On repeat abdominal exam, she notes that her pain continues to be adequately controlled in and is somewhat improving. On questioning, though she still rated as a 6/10 at rest. Abdominal exam is unchanged, no extension of ecchymosis. Patient notes she is feeling her bowels move but has not yet passed gas. At 1500 I was notified that patient passed gas and is reporting hunger. As such, I would change her diet to regular but encouraged her to gradually reintroduce p.o. intake. Plan to discontinue IV fluids and proceed with p.o. hydration. No suspicion for ileus at this time given demonstrable return of bowel function. Given stability in hemoglobin and ROBF, plan to resume PO pain regimen with tylenol, ibuprofen and oxycodone 5-10mg Q4H PRN. IV dilaudid 0.2mg is available only for breakthrough pain. VS continue to be within normal limits. Patient is ambulating, voiding spontaneously with excellent output, denies dizziness/lightheadedness/chest pain/dyspnea. Plan next labs at 6:00 a.m. with a repeat CBC. Would repeat this sooner with change in clinical status. Hopeful for dismissal to home tomorrow pending her postoperative milestone progression, pain control and repeat hemoglobin. Postoperative Procedures: Procedures Operation Date: 10/21/24 12:30 Actual Procedure Side Surgeon p Laparoscopic Salpingostomy and Lysis of Adhesions So Candelaria MD Time Spent With Patient Time: Total time spent is greater than 50% in coordination of care (as documented) at patient's floor/unit and/or counseling patient: Time with patient: Greater than 35 minutes SCREENING REPRESENTATIVE- PN:Subj Post-Op Subjective Time Seen by Provider: 08:13 Date Seen: 10/22/24 Interval history: Delayed documentation due to patient cares. Several repeat evaluations were performed at about 0800, 1000, 1230. Shena is a 34yo seen on POD1 from laparoscopic right salpingostomy and evacuation of hemoperitoneum in the setting of ruptured tubal ectopic . Her case was uncomplicated, though post-op course has been notable for large port-site hematoma/ecchymosis and downtrending hemoglobin. She has had difficulty with pain control and loss of bowel sounds, where she is being managed as suspected evolving ileus. She is NPO with IVF ongoing, pain control with IV dilaudid. Shena notes her postoperative pain control is improving. She is currently on a regimen of IV Dilaudid, rates her pain as 6/10 at rest and did just receive a dose of 0.5 mg IV Dilaudid. She notes her pain is severe rated as 8/10 when moving. I requested IV tylenol administration this morning, RN to retrieve and administer this shortly. Despite her pain, patient has been up and out of bed she ambulates to the bathroom and has been seated in the chair. She notes this significantly exacerbates her pain, but she does not feel dizzy or lightheaded. She does not have any specific chest pain at present, did note she has significant shoulder discomfort overnight which is attributed to pneumoperitoneum. She denies any significant pain in that area at present. Jane gomez did have some nausea/vomiting when her pain was severe overnight but denies any at present. She did have p.o. intake overnight, been NPO since about 299 due to concern for evolving ileus. On IVF at 125cc/hr, has voided spontaneously once since 299 but volume as unmeasured. Plan to start strict I/O. With regard to bruising, there is a very dark bruise that is still about 25-30 x15mm in size. There is extension of bruising to a total of 42mm x 15.5mm but this is much director financial systems in color. The subtle extension of slight bruising has increased in dimension since evaluation by Dr. Candelaria around 0 this morning but there does not seem to be extension of the dark ecchymosis. Patient has not yet passed flatus. She had bowel sounds demonstrated post-op yesterday, where these were diminished/absent overnight. She subsequently was made NPO with IVF for possible evolving ileus. Voiding spontaneous. No significant vaginal bleeding. No lower extremity edema/pain/erythema. Post Operative Details: Post-operative day number 1: status post laparoscopic right salpingostomy SCREENING REPRESENTATIVE-PN: Obj Exam Physical Exam: Vital signs: Temp Pulse Resp BP Pulse Ox O2 Del Method O2 Flow Rate 98.5 F 106 H 16 117/75 97 Room Air 2 10/22/24 07:34 10/22/24 07:34 10/22/24 07:34 10/22/24 07:34 10/22/24 07:34 10/22/24 07:34 10/21/24 15:15 Narrative: Vital signs reviewed. At rest, her heart rate is about 95 beats per minute but does rise to 105bpm when talking. General: Alert and oriented, no acute distress psych: Appropriate mood and affect Abdomen: Soft, nondistended. Tender to palpation, particularly over sites of bruising. No rebound or guarding. There is a dark violaceous bruise that is about 50w77ug in size surrounding the RLQ port site, with extension of much director financial systems bruising extending horizontally measuring a total of 42mm x 15.5mm. There is slight light bruising around the umbilicus, about 4x6cm in size - noted to be unchanged from a previous nursing exam yesterday evening. Extremities: No significant lower extremity edema, no calf erythema or tenderness. SCDs on while in bed. SCREENING REPRESENTATIVE - PN: Obj Data Labs Labs: Laboratory Results - last 24 hr 10/21/24 10/21/24 10/21/24 09:05 10:09 10:20 WBC 15.29 H RBC 4.51 Hgb 12.6 Hct 38.2 MCV 85 MCH 28 MCHC 33 RDW Coeff of Meri 13.3 Plt Count 317 Neut % (Auto) 77.3 H Lymph % (Auto) 18.1 L [place] % (Auto) 3.9 Eos % (Auto) 0.3 Baso % (Auto) 0.1 Neut # (Auto) 11.80 H Lymph # (Auto) 2.80 [place] # (Auto) 0.60 Eos # (Auto) 0.00 Baso # (Auto) 0.00 Abs Immat Gran (auto) 0.00 Imm/Tot Granulo (auto) 0.3 Sodium 135 Potassium 4.4 Chloride 109 Carbon Dioxide 19 L Anion Gap 7 BUN 19 Creatinine 0.6 Estimated Creat Clear 113.01 Estimated GFR 120 Glucose 125 H Lactate 1.5 Calcium 8.9 Total Bilirubin 0.4 AST 42 H ALT 45 H Alkaline Phosphatase 75 Total Protein 6.9 Albumin 4.0 HCG, Qual Positive HCG, Quant 3120.10 Lab Acknowledgement Test Added Blood Type A Positive Rho(D) Type Antibody Screen NEGATIVE Crossmatch ([facility]) 10/21/24 10/21/24 10/22/24 18:04 22:04 02:25 WBC RBC Hgb 10.8 L 10.2 L 9.7 L Hct MCV MCH MCHC RDW Coeff of Meri Plt Count Neut % (Auto) Lymph % (Auto) [place] % (Auto) Eos % (Auto) Baso % (Auto) Neut # (Auto) Lymph # (Auto) [place] # (Auto) Eos # (Auto) Baso # (Auto) Abs Immat Gran (auto) Imm/Tot Granulo (auto) Sodium Potassium Chloride Carbon Dioxide Anion Gap BUN Creatinine Estimated Creat Clear Estimated GFR Glucose Lactate Calcium Total Bilirubin AST ALT Alkaline Phosphatase Total Protein Albumin HCG, Qual HCG, Quant Lab Acknowledgement Blood Type Cancelled Rho(D) Type Cancelled Antibody Screen Cancelled Crossmatch ([facility]) See Detail 10/22/24 05:39 WBC 19.42 H RBC 3.31 L Hgb 9.4 L Hct 28.4 L MCV 86 MCH 28 MCHC 33 RDW Coeff of Meri 13.9 Plt Count 301 Neut % (Auto) 86.8 H Lymph % (Auto) 9.5 L [place] % (Auto) 3.3 Eos % (Auto) 0.0 Baso % (Auto) 0.0 Neut # (Auto) 16.90 H Lymph # (Auto) 1.80 [place] # (Auto) 0.60 Eos # (Auto) 0.00 Baso # (Auto) 0.00 Abs Immat Gran (auto) 0.10 Imm/Tot Granulo (auto) 0.4 Sodium 137 Potassium 3.8 Chloride 103 Carbon Dioxide 26 Anion Gap 8 BUN 14 Creatinine 0.7 Estimated Creat Clear 96.86 Estimated GFR 116 Glucose 153 H Lactate Calcium 8.3 L Total Bilirubin AST ALT Alkaline Phosphatase Total Protein Albumin HCG, Qual HCG, Quant Lab Acknowledgement Blood Type Rho(D) Type Antibody Screen Crossmatch ([facility])
[2024-10-22 09:25] LABS: Hematocrit* 25.9 % (33.0-51.0); Hemoglobin* 8.6 gm/dL (12.0-16.0); Immature Granulocytes Pct Auto 0.4 %; Mean Corpuscular HGB Conc 33 gm/dL (32-36); Mean Corpuscular Hemoglobin 28 pg (26-34); Mean Corpuscular Volume 85 fL (80-100); RDW Coefficient of Variation % 13.8 % (11.5-15.5); Red Blood Count* 3.05 m/uL (4.00-5.20); White Blood Count* 19.72 K/uL (4.50-11.00)
[2024-10-22 09:43] LABS: Immature Granulocytes Abs Auto 0.10 K/uL (0.00-0.30); Lymphocytes Absolute Auto 2.00 K/uL (0.90-2.90); Slide Review Reflex No
--- NOTE | 2024-10-22 09:53 | CRLHL7_ITS ---
For Patients: As a result of the 21st Century Cures Act, medical imaging exams and procedure reports are released immediately into your electronic medical record. You may view this report before your referring provider. If you have questions, please contact your health care provider. INDICATION: INJURY TO RIGHT INFERIOR EPIGASTRIC, EVAL RECTUS SHEATH HEMATOMA. (Sic) Upon request for additional information, the patient is recently status post surgery for ectopic . COMPARISON: 10/22/2024 at 0324 hours[address] TECHNIQUE: CT of the abdomen and pelvis prior to and following administration of 95 cc of Isovue 370 intravenous contrast. Postcontrast imaging acquired in the arterial, portal venous and delayed phases. Please note that all CT scans at this facility use dose modulation, iterative reconstruction, and/or weight-based dosing when appropriate to reduce radiation dose to as low as reasonably achievable. FINDINGS: BODY WALL Thickening of the skin of the right lower anterior abdominal wall with stranding within the subcutaneous fat is consistent with edema/hemorrhage. Similar, although less extensive, findings are present involving the left anterior abdominal wall at the level of the umbilicus consistent with edema/hemorrhage associated with a port site. No subcutaneous or intramuscular hematoma. No sign of active bleeding. No evidence of pseudoaneurysm. Extensive properitoneal (extraperitoneal) soft tissue gas which extends to the falciform ligament and above the level of the diaphragm via the spaces of Larrey is consistent recent prior surgery. Comparatively small volume perihepatic pneumoperitoneum. ABDOMEN Liver: Normal contour and attenuation. No significant focal lesion. No intrahepatic biliary ductal dilatation. Patent portal veins. Hepatic veins are not enhanced on this hepatic arterial phase exam. Gallbladder: Normal size. No pericholecystic inflammatory changes. Normal common duct caliber. Pancreas: Normal contour and attenuation. No peripancreatic inflammatory changes. No significant focal lesion. Normal main duct caliber. Spleen: Not enlarged. No significant focal lesion. Patent splenic artery and vein. Adrenal Glands: Symmetrical adrenal glands. No significant focal lesion. Kidneys: Normal bilateral renal attenuation. No significant focal lesion. Uncomplicated right renal cortical cysts. Bilateral lower pole nonobstructing nephrolithiasis (series 16; images 67 71). No dilatation of the intrarenal collecting systems. No ureteral stone. Nondilated ureters. Patent renal arteries and veins. Gastrointestinal tract: Normal caliber, attenuation and wall thickness of the gastrointestinal tract. No inflammatory changes. Normal small bowel mesentery. Normal appendix. Vascular: Abdominal aorta and its major proximal branches including the celiac, superior mesenteric, inferior mesenteric, renal, and bilateral common iliac arteries are patent. Patent superior mesenteric vein. PELVIS A loculated dependent gas within the bladder lumen is noted which is most likely related to recent prior instrumentation in this patient who is recently status post surgery.No significant incidental findings related to the uterus or uterine adnexa. Small volume hyperattenuating pelvic cul-de-sac hemoperitoneum.. No adenopathy. SKELETON No acute or significant incidental findings. L5-S1 disc degeneration. LOWER THORAX Bilateral lower lobe subsegmental atelectasis. IMPRESSION: 1. Thickening of the skin of the right lower anterior abdominal wall with stranding within the subcutaneous fat is consistent with edema/hemorrhage. 2. Similar, although less extensive, findings are present involving the left anterior abdominal wall at the level of the umbilicus consistent with edema/hemorrhage associated with a port site. 3. No discrete subcutaneous or intramuscular hematoma. No sign of active bleeding. No evidence of pseudoaneurysm. 4. Unchanged small volume pelvic cul-de-sac fluid hemoperitoneum. 5. Redemonstration of extensive anterior properitoneal (extraperitoneal) soft tissue gas which extends from the pelvic inlet to the falciform ligament and above the level of the diaphragm via the spaces of Larrey consistent recent prior laparoscopic surgery. Comparatively small volume perihepatic pneumoperitoneum. Please note that all CT scans at this facility use dose modulation, iterative reconstruction, and/or weight-based dosing when appropriate to reduce radiation dose to as low as reasonably achievable. Dictated by Lupillo Moser MD @ 10/22/2024 11:58:56 AM (Electronically Signed)
[2024-10-22 10:32] LABS: INR 1.06 (0.91-1.10); Prothrombin Time 14.7 Seconds
[2024-10-22 13:12] LABS: Hematocrit* 26.4 % (33.0-51.0); Hemoglobin* 8.7 gm/dL (12.0-16.0); Immature Granulocytes Pct Auto 0.4 %; Mean Corpuscular HGB Conc 33 gm/dL (32-36); Mean Corpuscular Hemoglobin 28 pg (26-34); Mean Corpuscular Volume 86 fL (80-100); RDW Coefficient of Variation % 14.0 % (11.5-15.5); Red Blood Count* 3.08 m/uL (4.00-5.20); White Blood Count* 16.52 K/uL (4.50-11.00)
[2024-10-22 13:22] LABS: Immature Granulocytes Abs Auto 0.10 K/uL (0.00-0.30); Lymphocytes Absolute Auto 2.10 K/uL (0.90-2.90); Slide Review Reflex No
[2024-10-22] MEDS: METOCLOPRAMIDE HCL 5 MG/ML INJ 10 MG IVP (13:59)
[2024-10-22] MEDS: SIMETHICONE 80 MG TAB.CHEW PO ×2 (17:18→21:19)
--- NOTE | 2024-10-22 18:07 | PC.NURSE ---
Pt's pain has been 6-8, at 6 she has been able to ambulate and sleep at times and feels like she can take a deep breath. Continued to watch bruising on her abd. and kishore the area has increased 1-2 cm through out the the day the last check at 1630 the increase is slight shading of purple versus a dark purple. Pt. offered IRIS packet for loss.
[2024-10-22] MEDS: DOCUSATE SODIUM 100 MG CAPSULE PO (18:32)
[2024-10-23] VITALS (15 sets, daily range): BP systolic 96–136; BP diastolic 62–87; PULSE 78–106; RESP 16–20; TEMP 36.6–37.2; O2SAT 96–99
[2024-10-23] MEDS: IBUPROFEN 600 MG TABLET PO (02:04)
[2024-10-23] MEDS: METOCLOPRAMIDE 10 MG TABLET PO (03:19)
[2024-10-23] MEDS: ACETAMINOPHEN 500 MG TABLET 1000 MG PO (05:03)
[2024-10-23 06:44] LABS: Hematocrit* 23.2 % (33.0-51.0); Immature Granulocytes Abs Auto 0.03 K/uL (0.00-0.30); Immature Granulocytes Pct Auto 0.3 %; Lymphocytes Absolute Auto 3.33 K/uL (0.90-2.90); Mean Corpuscular HGB Conc 33 gm/dL (32-36); Mean Corpuscular Hemoglobin 29 pg (26-34); Mean Corpuscular Volume 87 fL (80-100); RDW Coefficient of Variation % 14.2 % (11.5-15.5); Red Blood Count* 2.67 m/uL (4.00-5.20); White Blood Count* 10.36 K/uL (4.50-11.00)
[2024-10-23] MEDS: ONDANSETRON 2 MG/ML inj 4 MG IVP (06:46)
[2024-10-23 06:51] LABS: Hemoglobin* 7.7 gm/dL (12.0-16.0); Slide Review Reflex No
--- NOTE | 2024-10-23 08:00 | PM.GYNPNPO ---
MEDICAID BUSINESS ANALYST - A/P Assessment and plan (1) H/O salpingostomy: Problem details: Laparoscopic, For ectopic 10/21/2024, complicated by large ecchymosis surrounding right lower quadrant port site Status: Acute (2) Postoperative pain: Status: Acute Plan Patient has clinically improved slightly,but she has continued to need around the clock pain medication. Vital signs have remained stable and physical exam this morning not concerning for active bleeding. Hemoglobin dropped again this am to 7.7mg/dL. Recommend blood transfusion and patient is in agreement so will proceed with blood transfusion now. I would like to rule out continued intra abdominal bleeding from salpingostomy, pelvic US will be repeated this morning. If US is negative, will proceed with transfer inquiry for IR consideration. Postoperative Procedures: Procedures Operation Date: 10/21/24 12:30 Actual Procedure Side Surgeon p Laparoscopic Salpingostomy and Lysis of Adhesions So Candelaria MD Postoperative day: 2 Postoperative status: marginal pain control and anemia Postoperative plan: see orders Time Spent With Patient Time: Total time spent is greater than 50% in coordination of care (as documented) at patient's floor/unit and/or counseling patient: Time with patient: 25 - 35 minutes MEDICAID BUSINESS ANALYST- PN:Subj Post-Op Subjective Time Seen by Provider: 07:30 Date Seen: 10/23/24 Interval history: Okay, she was able to rest a bit yesterday but has continued to need around the clock pain medication. She does report a headache this morning, mostly on her back and neck. She did eat yesterday but has remained with some nausea, no vomiting. She has ambulated w/o lightheadedness or dizziness. She is urinating well w/o burning or pain. She has passed gas. Vital signs have remained stable. Unfortunately her hemoglobin was 7.7mg/dL this am. Post Operative Details: Post-operative day number 2: status post Laparoscopic salpingostomy with evacuation of hemoperitoneum. Subjective: patient reports feeling better, pain not well controlled, ambulating well, voiding without difficulty, patient is tolerating oral intake, patient reports nausea and passing flatus MEDICAID BUSINESS ANALYST-PN: Obj Exam Physical Exam: Vital signs: Temp Pulse Resp BP Pulse Ox O2 Del Method O2 Flow Rate 98.1 F 78 18 123/79 99 Room Air 2 10/23/24 07:37 10/23/24 07:37 10/23/24 07:37 10/23/24 07:37 10/23/24 07:37 10/23/24 07:37 10/21/24 15:15 Narrative: VITAL SIGNS: As noted above. GENERAL APPEARANCE: Alert, cooperative female in no acute distress. MOOD & AFFECT: Normal. ABDOMEN: Positive bowel sounds in all quadrants, slightly distended, tender to palpation, hematoma from skin ventura yesterday, it does look to have a slight extension. : Minimal menses like bleeding. EXTREMITIES: Nonedematous. Well perfused. Nontender. MEDICAID BUSINESS ANALYST - PN: Obj Data Labs Labs: Laboratory Results - last 24 hr 10/22/24 10/22/24 10/22/24 09:18 10:08 13:06 WBC 19.72 H 16.52 H RBC 3.05 L 3.08 L Hgb 8.6 L 8.7 L Hct 25.9 L 26.4 L MCV 85 86 MCH 28 28 MCHC 33 33 RDW Coeff of Meri 13.8 14.0 Plt Count 243 240 Neut % (Auto) 83.4 H 82.4 H Lymph % (Auto) 10.3 L 12.7 L Beck[place] % (Auto) 5.8 4.4 Eos % (Auto) 0.0 0.0 Baso % (Auto) 0.1 0.1 Neut # (Auto) 16.40 H 13.60 H Lymph # (Auto) 2.00 2.10 [place] # (Auto) 1.10 H 0.70 Eos # (Auto) 0.00 0.00 Baso # (Auto) 0.00 0.00 Abs Immat Gran (auto) 0.10 0.10 Imm/Tot Granulo (auto) 0.4 0.4 INR 1.06 APTT 22 L Fibrinogen 386 10/23/24 06:00 WBC 10.36 RBC 2.67 L Hgb 7.7 L* Hct 23.2 L MCV 87 MCH 29 MCHC 33 RDW Coeff of Meri 14.2 Plt Count 195 Neut % (Auto) 62.2 Lymph % (Auto) 32.1 [place] % (Auto) 5.1 Eos % (Auto) 0.2 Baso % (Auto) 0.1 Neut # (Auto) 6.44 Lymph # (Auto) 3.33 H [place] # (Auto) 0.50 Eos # (Auto) 0.02 Baso # (Auto) 0.01 Abs Immat Gran (auto) 0.03 Imm/Tot Granulo (auto) 0.3 INR APTT Fibrinogen
--- NOTE | 2024-10-23 08:16 | CRLHL7_ITS ---
For Patients: As a result of the Century Cures Act, medical imaging exams and procedure reports are released immediately into your electronic medical record. You may view this report before your referring provider. If you have questions, please contact your health care provider. INDICATION: HEMOGLOBIN CONTINUING TO DECREASE, RULE OUT CONTINUED BLEEDING FROM ECTOPIC COMPARISON: CT 10/22/2024, 10/22/2024, ultrasound 10/21/2024 TECHNIQUE: 2D bonilla-scale and color Doppler images were acquired of the pelvis using a transabdominal and transvaginal approach. Transvaginal imaging performed to better visualize the endometrial stripe and ovaries. FINDINGS: Sonographic images demonstrate a normal size and smooth outer contour of the uterus. Uterus measures 9.1 cm in length by 4.5 cm in AP diameter by 5.4 cm in transverse dimension. The myometrium has a normal uniform echotexture. The endometrial lining appears normal and measures 10 mm in composite thickness. The right ovary measures 2.9 x 1.5 x 2.8 cm in size and the left ovary measures 3.1 x 1.5 x 2.4 cm. The ovaries demonstrate normal arterial and venous blood flow on color Doppler analysis. Moderate complex fluid in the cul de sac is similar to the prior CT scans. Incidental paraovarian cyst on the right measures 1.7 x 1.5 x 1.7 cm. IMPRESSION: Similar volume of blood products within the cul-de-sac. Dictated by Harshad Elder MD @ 10/23/2024 11:08:46 AM (Electronically Signed)
[2024-10-23 08:50] LABS: INR 0.98 (0.91-1.10); Prothrombin Time 13.8 Seconds
[2024-10-23] MEDS: METOCLOPRAMIDE HCL 5 MG/ML INJ 10 MG IVP (11:35)
[2024-10-23] MEDS: LACTATED RINGERS 1000 ML 1,000 ML 125 ML IV ×2 (11:50→20:58)
--- NOTE | 2024-10-23 12:21 | PC.NURSE ---
Areas of increased bruising on abd. marked this morning sl. increase in boarders. Pt. has been up ambulating and states she doesn't feel light headed or dizzy when up. Requested to shower this morning at 0730, reviewed with pt. her hgb this morning is lower again and the Dr. Degroot would like her to be NPO until she reviewed her chart and came down to see her. Pt. is now resetting declined pain medication, reglan for her headache and nausea. Provider discussed ultrasound results with pt and her , pt. has requested transfer to [place] versus further interventions here. notified [facility] waiting for acceptance for transfer. Pt. and verbalized frustration with care here, aware nurse was going to contact the patient advocate. Pt. advocate notified and will come see the patient when the patient is ready. Patient advocate card also given to patient.
[2024-10-23 13:41] LABS: Hemoglobin* 8.7 gm/dL (12.0-16.0)
--- NOTE | 2024-10-23 14:37 | PC.NURSE ---
This RN at bedside checking vital signs of patient. Patient has increased pain with ambution rating the pain 7/10. Patient was updated that [facility] did not approve for transfer until tomorrow, and that Dr. Degroot is looking for a different transfer site. Bruising on the patient's abdomen is deep red/purple on the right lower quadrant, rings around her umbilicus and travels to her right lower back. The patient urinated while this RN was in the room, and passed some small blood clots that she felt she hadn't seen as much of before.
--- NOTE | 2024-10-23 15:45 | PC.NURSE ---
The patient just showered and received pain medication. Dr. Cierra Melendez told the patient she could have a clear liquid diet. The patient has bruising on the stomach that is reddish purple that crosses over the entire lower abdomen. On the left side bruising has spread around 1 inch from the previous marking at 12:30. Bruising is spreading on the patient's right lower back and has spread 0.5 inch from the last marked spot at 12:30. The bruising has not spread over her umbilicus or below into the pelvic area, but seems to be spreading to her sides. The bruising is red, there is slight swelling noted. The bruised skin is warm, dry and intact.
--- NOTE | 2024-10-23 15:54 | PC.NURSE ---
This RN at bedside measuring the patient's bruise with a measuring tape. The bruising is primarily on the right side measuring 22 inches in length and 7 inches in width with the exception of the width measuring 8 inches at the umbilicus. Patient states that she feels pain on both sides of her abdomen.
--- NOTE | 2024-10-23 16:45 | PC.NURSE ---
This RN at bedside performing vital signs and checking on patient's bruising. Bruising is unchanged from last check at 15:45. Bruising is slightly warmer to the touch than unaffected skin. This RN updated Dr. Cierra Melendez via [facility] providing overview of bruising from 12:30 to present. Patient has had some clear liquids and is feeling more comfortable. The patient is pumping at this time, and states she was able to nap after showering.
[2024-10-23 17:37] LABS: Hematocrit* 27.3 % (33.0-51.0); Hemoglobin* 9.0 gm/dL (12.0-16.0); Immature Granulocytes Abs Auto 0.04 K/uL (0.00-0.30); Immature Granulocytes Pct Auto 0.5 %; Lymphocytes Absolute Auto 3.55 K/uL (0.90-2.90); Mean Corpuscular HGB Conc 33 gm/dL (32-36); Mean Corpuscular Hemoglobin 28 pg (26-34); Mean Corpuscular Volume 86 fL (80-100); RDW Coefficient of Variation % 14.0 % (11.5-15.5); Red Blood Count* 3.19 m/uL (4.00-5.20); White Blood Count* 8.69 K/uL (4.50-11.00)
[2024-10-23 17:50] LABS: Slide Review Reflex No
--- NOTE | 2024-10-23 18:39 | PC.NURSE ---
This RN at bedside checking vital signs and checking on patient's abdominal bruising. Vital signs are stable. Bruising on abdomen is slightly warm to the touch. Bruising has stayed within margins from measurements taken at 15:45 except that the bruise has spread 0.5 inch up the abdomen on the right side of the umbilicus. The majority of the bruise is purplish-red, but the bruise is less saturated and light purple on the edges. Patient states she is still feeling pain on both sides of her abdomen. She rates the pain 7/10. The abdomen is tender to palpation.
[2024-10-23] MEDS: VALACYCLOVIR HCL 500 MG TABLET PO (19:20)
--- NOTE | 2024-10-23 19:44 | PC.NURSE ---
This RN at bedside. Bruising is unchanged from check at 1730. Abdomen is tender to palpation. Patient states pain is 6/10.
--- NOTE | 2024-10-23 20:25 | PC.NURSE ---
This JORJE at bedside, patient request all 4 side rails up.
--- NOTE | 2024-10-23 21:43 | PC.NURSE ---
This RN is at bedside assessing patient's bruising. The patient states the pain is increasing on the left side, and bruising is primarily on the right. The patient said that previously the pain was more on the right. Bruising has spread upward into the abdomen abouta 1,4 inch on the right side of the abdomen. There is light purple bruising present above and below the left incisional site but not between the incisional site and the umbilicus. Patient states that her pain is 7/10.
[2024-10-24] VITALS (7 sets, daily range): BP systolic 107–134; BP diastolic 70–85; PULSE 79–108; RESP 16–20; TEMP 36.4–36.9; O2SAT 96–99
[2024-10-24] MEDS: SODIUM CHLORIDE 0.9 % (FLUSH) 10 ML SYRINGE IVF ×3 (01:16→07:13)
[2024-10-24] MEDS: LACTATED RINGERS 1000 ML 1,000 ML 125 ML IV (04:57)
[2024-10-24 06:18] LABS: Hematocrit* 30.4 % (33.0-51.0); Hemoglobin* 10.0 gm/dL (12.0-16.0); Immature Granulocytes Abs Auto 0.02 K/uL (0.00-0.30); Immature Granulocytes Pct Auto 0.2 %; Lymphocytes Absolute Auto 4.03 K/uL (0.90-2.90); Mean Corpuscular HGB Conc 33 gm/dL (32-36); Mean Corpuscular Hemoglobin 28 pg (26-34); Mean Corpuscular Volume 86 fL (80-100); RDW Coefficient of Variation % 14.1 % (11.5-15.5); Red Blood Count* 3.52 m/uL (4.00-5.20); White Blood Count* 9.99 K/uL (4.50-11.00)
[2024-10-24 06:25] LABS: Slide Review Reflex No
[2024-10-24] MEDS: ACETAMINOPHEN 500 MG TABLET 1000 MG PO (08:25)
[2024-10-24] MEDS: DOCUSATE SODIUM 100 MG CAPSULE PO (08:25)
[2024-10-24] MEDS: VALACYCLOVIR HCL 500 MG TABLET PO (08:36)
--- NOTE | 2024-10-24 08:54 | CRLHL7_ITS ---
For Patients: As a result of the Century Cures Act, medical imaging exams and procedure reports are released immediately into your electronic medical record. You may view this report before your referring provider. If you have questions, please contact your health care provider. INDICATION: Follow-up pelvic free-fluid after recent surgery for an ectopic . COMPARISON: Ultrasound 10/23/2024, CT 10/22/2024 TECHNIQUE: Transabdominal: Nichols-scale and color Doppler ultrasound of the uterus and ovaries from a transabdominal approach. Transvaginal: Nichols-scale and color Doppler ultrasound of the uterus and ovaries from a transvaginal approach. Transvaginal ultrasound of the pelvis was performed to better visualize the genitourinary organs, such as the ovaries and/or endometrium. FINDINGS: Reported last menstrual period: Recent surgery for ectopic . The uterus is anteverted and measures 9.0 x 4.0 x 5.3 cm. Prior section incision/scar. No uterine masses. The endometrial stripe measures 0.6 cm in double thickness. No endometrial masses. There are several cervical nabothian cysts. The right ovary measures 3.3 x 1.5 x 2.4 cm. Physiologic appearance without a worrisome cystic lesion or solid ovarian / adnexal mass. There is a right paraovarian cyst that measures 2.8 x 1.6 x 1.7 cm. There is normal arterial and venous color Doppler flow and normal arterial and venous waveforms on duplex Doppler. The left ovary measures 2.4 x 1.5 x 2.3 cm. Physiologic appearance without a dominant cystic lesion or solid ovarian / adnexal mass. There is normal arterial and venous color Doppler flow and normal arterial and venous waveforms on duplex Doppler. There is a moderate amount of free fluid, debris, and blood clot in the posterior cul-de-sac. No fluid in Alanis`s pouch. Free fluid. IMPRESSION: Moderate pelvic fluid, debris, and blood clot. Exact measurements are difficult to replicate but overall appears to be evolving/decreasing compared to the previous exam from yesterday. Dictated by Niharika Calvert MD @ 10/24/2024 11:28:59 AM (Electronically Signed)
--- NOTE | 2024-10-24 11:58 | PM.GYNDS1 ---
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 Indication for surgery: ruptured left ectopic . Intraoperative findings were notable for hemoperitoneum (approximately 400 mL of intraperitoneal blood), dilated left fallopian tube from its mid isthmic portion to the fimbriated edge, surrounded by largely clotted blood. Upon incision into the tube, small amount of tissue consistent in appearance with placental was removed. Right ovary was normal in appearance. The bladder reflection was scarred, consistent in appearance with previous deliveries. There was a large fascial defect just left of midline in the lower anterior abdominal wall, where omentum was adherent. There was no visible rectus diastasis above this defect.. She had a reportedly uncomplicated surgery. Postoperative course was complicated by pain and extensive subcutaneous ecchymoses in the lower right abdomen, as well as some intra-abdominal bleeding. CT scan and CT angiogram were performed on 10/22/2024, which did not reveal a source of active bleeding, but demonstrated stable edema/hemorrhage in the subcutaneous tissues of the right abdomen and a small amount of fluid in the pelvis consistent with hemoperitoneum. Pelvic ultrasound on 10/23/2024 showed moderate complex fluid in the cul de sac is similar to the prior CT scans. Repeat pelvic ultrasound on 10/24/2024 showed evolving/decreasing fluid in the pelvis. Labs were remarkable for a drop in Hgb on 09/22/2024 to 7.7 for which she was transfused 1 unit of PRBCs. Due to concerns about the possibility of ongoing intra-abdominal bleeding on 10/23/2024, exploratory surgery [facility]. Transfer was not feasible due to non-acceptance at two different facilities contacted, and the patient declined additional surgery, so close observation was continued as her Hgb began to rise and vital signs remained stable. On the morning of 10/24/2024, Hgb had risen to 10, and coagulation studies were normal. Pain was better controlled, despite continued presence of subcutaneous ecchymoses. She was tolerating a regular diet and ambulating without difficulty. Time Spent with Patient Time attestation: Total time spent providing and/or coordinating discharge services: Time spent: Greater than 30 minutes (90 minutes) TRANSPORTATION ECONOMICS TEACHER - Exam Physical Exam: Vital signs: Temp Pulse Resp BP Pulse Ox O2 Del Method O2 Flow Rate 97.6 F 80 16 134/85 98 Room Air 2 10/24/24 10:10/24/24 10:04 10/24/24 10:04 10/24/24 10:04 10/24/24 10:10/24/24 10:04 10/21/24 15:15 Constitutional: Constitutional: no acute distress Routine HEENT Exam: Head: Present normal inspection Routine Neck Exam: NECK: Present supple Routine Respiratory Exam: Respiratory: Present CTA bilaterally; Absent crackles, rhonchi or wheezes Routine Cardiovascular Exam: Cardiovascular: Present RRR; Absent murmur Routine Abdominal Exam: Abdominal: Present normal bowel sounds and soft; Absent distended or tenderness Comments: Extensive ecchymoses in the lower abdomen surrounding the RLQ port site and extending to the midline and around the right lateral side, up to the umbilicus and down to the symphysis, nontender, soft. Routine Extremities Exam: Extremities: Present normal inspection; Absent calf tenderness or pedal edema Routine Psychiatric Exam: Psychiatric: Present normal affect TRANSPORTATION ECONOMICS TEACHER - DS: Data Data Completed and Pending Labs on day of discharge: Labs from last 24 hours 10/24/24 10/23/24 10/23/24 05:47 17:30 13:35 WBC 9.99 8.69 RBC 3.52 L 3.19 L Hgb 10.0 L 9.0 L 8.7 L Hct 30.4 L 27.3 L MCV 86 86 MCH 28 28 MCHC 33 33 RDW Coeff of Meri 14.1 14.0 Plt Count 232 170 Neut % (Auto) 53.4 53.0 Lymph % (Auto) 40.3 40.9 [place] % (Auto) 5.1 5.2 Eos % (Auto) 0.8 0.2 Baso % (Auto) 0.2 0.2 Neut # (Auto) 5.33 4.61 Lymph # (Auto) 4.03 H 3.55 H [place] # (Auto) 0.50 0.50 Eos # (Auto) 0.08 0.02 Baso # (Auto) 0.02 0.02 Abs Immat Gran (auto) 0.02 0.04 Imm/Tot Granulo (auto) 0.2 0.5 Preliminary micro results at discharge 10/21/24 09:47 Blood Culture - Preliminary Blood NO GROWTH AFTER 72 HOURS 10/21/24 09:52 Blood Culture - Preliminary Blood NO GROWTH AFTER 72 HOURS Procedures Procedures: Procedures Operation Date: 10/21/24 12:30 Actual Procedure Side Surgeon p Laparoscopic Salpingostomy and Lysis of Adhesions So Candelaria MD Operation Date: 10/23/24 11:30 <No data on this case meets the specified criteria> Discharge Plan Discharge Disposition: Home, Self-Care Date of Admission: 10/23/24 01:56 Attending Provider on Discharge: Maame Landis Primary Care Provider: Provider,Not a Local Condition: Guarded Anticipated Discharge Date/Time: 10/24/24 11:55 Discharge Medications: New acetaminophen 500 mg Tablet 1,000 mg PO Q6H PRN (Reason: Pain) Qty: 0 0RF oxycodone 5 mg Tablet 5 mg PO Q4H PRN (Reason: 4 OR GREATER ON PAIN SCALE) Qty: 20 0RF docusate sodium 100 mg Capsule 100 mg PO BID PRN (Reason: Constipation) Qty: 30 0RF Discharge Orders: Discharge Order (Routine); Ordered 10/21/24 Ordered By: So Candelaria Patient Education: NH+C Laparoscopy Discharge Instructions Activity Level: Activity as Tolerated and No strenuous activity Activity Detail: No heavy lifting (greater than 20 pounds) for 4 weeks. Follow up next week in [facility]. Discharge Diet: Regular Follow Up Appointments: So Candelaria MD [Staff Physician, SOAKING TANK WORKER] Provider,Not a Local [Primary Care Provider, Family Practice] Forms: [facility] Bel[facility], [facility] Instructions
== END 2024-10-24 13:40 | disposition home or self-care (01) | DRG 817 ==
LOC: ED 11:29 → OR 12:30 → OB 15:34 → OR 10-23 01:56 → OB 10-23 01:56
PROVIDERS: Obstetrics & Gynecology; Admitting Provider Obstetrics & Gynecology; Emergency Provider Student in an Organized Health Care Education/Training Program; Visit Provider Obstetrics & Gynecology
PROC: 10D24ZZ Extraction of Products of Conception, Ectopic, Percutaneous Endoscopic Approach (ICD-10-PCS; CPT 59150; principal; 2024-10-21 12:30)
DX: O00.101 Right tubal pregnancy without intrauterine pregnancy (principal); K66.1 Hemoperitoneum; L76.32 Postprocedural hematoma of skin and subcutaneous tissue following other procedure; D62 Acute posthemorrhagic anemia; N99.71 Accidental puncture and laceration of a genitourinary system organ or structure during a genitourinary system procedure; K66.0 Peritoneal adhesions (postprocedural) (postinfection); G89.18 Other acute postprocedural pain
CPT/HCPCS: 00840; 36415; 36430; 74174; 74176; 76817; 76830; 76856; 80048; 80053; 81001; 83605; 84702; 84703; 85018; 85025; 85384; 85610; 85730; 86850; 86900; 86901; 86922; 87040; 88305; 99140; 99285; 99291; A9270; J0131; J0330; J0665; J1100; J1171; J1630; J1885; J2250; J2270; J2371; J2405; J2704; J2710; J2765; J3010; J3490; J7120; P9016; Q9967

== ENCOUNTER 2024-10-31 13:15 | Outpatient (CLI) | payer MEDICAID, SELFPAY | END 2024-10-31 13:16 | disposition home or self-care (01) | LOC: NFLDREF 13:16 | PROVIDERS: Visit Provider Obstetrics & Gynecology | DX: G89.18 Other acute postprocedural pain (principal) | CPT/HCPCS: 84702 ==

== ENCOUNTER 2024-11-17 16:14 | Outpatient (CLI) | payer MEDICAID, SELFPAY | END 2024-11-17 16:15 | disposition home or self-care (01) | PROVIDERS: Visit Provider Obstetrics & Gynecology | DX: N91.5 Oligomenorrhea, unspecified (principal) | CPT/HCPCS: 83498; 84270; 84402; 84403; 84443; 84702 ==